=== PATIENT | male | born 1960 | race Caucasian/White ===

== ENCOUNTER 2017-03-05 18:01 | Emergency (ER) | payer OTHER, MEDICAID ==
[~2017-03-05] VITALS: Ht 180.3 cm; Wt 130.0 kg
[~2017-03-05 18:01] MED LIST: ARIM1TAB PO; BETH10 PO; CEFU1TAB43 PO; CITA-48 PO; CLIN1CAP6 PO; CYCL1PAK PO; GABA100C4 PO; GLUCOMETER XX; GLUCOMTESTSTRIPS; HYDR-3535 PO; LISI-360 PO; MONT10TA2 PO; OMEP20TA39 PO; PRAV40TA2 PO; SOMA350T PO; XANA2TAB2 PO; Z.0.LANCETS XX
[2017-03-05 18:04] VITALS: BP 142/96; PULSE 99; RESP 14; TEMP 98.6; O2SAT 95
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
[2017-03-05] MEDS ORDERED: SODIUM CHLOR 0.9% 1000 ML INJ 1,000 ML IV SCH (19:50)
[2017-03-05] MEDS ORDERED: SODIUM CHLORIDE 0.9% FLUSH 10 ML FLUSH IV FLUSH PRN (20:00)
[2017-03-05] MEDS ORDERED: ONDANSETRON HCL 4 MG/2 ML VIAL IVP ONE (20:00)
[2017-03-05] MEDS ORDERED: MORPHINE SULFATE 2 MG/ML INJ IV PUSH ONE (20:00)
[2017-03-05 20:21] LABS: BASOPHIL # 0.1 TH/MM3 (0-0.2); BASOPHIL % 0.7 % (0.0-2.0); EOSINOPHIL # 0.6 TH/MM3 (0-0.4); HEMATOCRIT 50.2 % (39.0-51.0); HEMOGLOBIN 17.3 GM/DL (13.0-17.0); LYMPH % 20.6 % (9.0-44.0); LYMPHOCYTE # 2.5 TH/MM3 (1.0-4.8); MEAN CELL VOLUME 91.6 FL (80.0-100.0); MEAN CORPUSCULAR HEMOGLOBIN 31.5 PG (27.0-34.0); MEAN CORPUSCULAR HGB CONC 34.4 % (32.0-36.0); MEAN PLATELET VOLUME 8.2 FL (7.0-11.0); MONO % 7.2 % (0.0-8.0); MONOCYTE # 0.9 TH/MM3 (0-0.9); NEUT % 66.5 % (16.0-70.0); PLATELET COUNT 179 TH/MM3 (150-450); RED BLOOD COUNT 5.48 MIL/MM3 (4.50-5.90); RED CELL DISTRIBUTION WIDTH 13.4 % (11.6-17.2); WHITE BLOOD COUNT 12.1 TH/MM3 (4.0-11.0)
[2017-03-05] MEDS ORDERED: NAPR500T2 PO (20:25)
[2017-03-05] MEDS ORDERED: TRAZ1TAB14 PO (20:25)
[2017-03-05] MEDS ORDERED: HYDR-3583 PO (20:25)
[2017-03-05] MEDS ORDERED: LOSA25TA PO (20:25)
[2017-03-05] MEDS ORDERED: BUPR300T PO (20:25)
[2017-03-05] MEDS ORDERED: OMEP20TA93 PO (20:25)
[2017-03-05] MEDS ORDERED: PRAV40TA2 PO (20:25)
[2017-03-05] MEDS ORDERED: MONT10TA4 PO (20:25)
[2017-03-05] MEDS ORDERED: CYCL10TA PO (20:25)
[2017-03-05] MEDS ORDERED: ALPR1TAB3 PO (20:25)
[2017-03-05] MEDS ORDERED: NYST500000 PO (20:25)
[2017-03-05] MEDS ORDERED: ROPI0.5T PO (20:25)
[2017-03-05] MEDS ORDERED: CITA40TA4 PO (20:25)
[2017-03-05] MEDS ORDERED: DULA10IN SQ (20:25)
[2017-03-05] MEDS ORDERED: CANA1TAB4 PO (20:25)
[2017-03-05] MEDS ORDERED: BUSP10TA PO (20:25)
[2017-03-05] MEDS ORDERED: GABA100C4 PO (20:25)
--- NOTE | 2017-03-05 20:31 | RADRPT ---
EXAM DATE/TIME: 03/05/2017 20:03 [facility] COMPARISON: No previous studies available for comparison. INDICATIONS : HALFWAY,Trauma. MEDICAL HISTORY : None. SURGICAL HISTORY : None. ENCOUNTER: Initial ACUITY: 1 day PAIN SCORE: 5/10 LOCATION: Left shoulder FINDINGS: There is no fracture or subluxation of the left shoulder. There is mild acromioclavicular and severe glenohumeral joint osteoarthritis. Radiographic appearance of the soft tissues within normal limits. CONCLUSION: Degenerative changes as above. Intact left shoulder. Cornell Thompson MD on March 05, 2017 at 20:28 Board Certified Radiologist. This report was verified electronically.
--- NOTE | 2017-03-05 20:32 | RADRPT ---
EXAM DATE/TIME: 03/05/2017 20:07 [facility] COMPARISON: No previous studies available for comparison. INDICATIONS : CORRECTION,Trauma. MEDICAL HISTORY : None. SURGICAL HISTORY : None. ENCOUNTER: Initial ACUITY: 1 day PAIN SCORE: 5/10 LOCATION: Left elbow FINDINGS: Two view examination of the left elbow demonstrates no soft tissue swelling, joint effusion, fracture or dislocation. Bony mineralization is normal. CONCLUSION: Intact left elbow. Cornell Thompson MD on March 05, 2017 at 20:29 Board Certified Radiologist. This report was verified electronically.
--- NOTE | 2017-03-05 20:34 | RADRPT ---
EXAM DATE/TIME: 03/05/2017 20:11 [facility] COMPARISON: No previous studies available for comparison. INDICATIONS : CUSTODIAL,Trauma. MEDICAL HISTORY : None. SURGICAL HISTORY : None. ENCOUNTER: Initial ACUITY: 1 day PAIN SCORE: 5/10 LOCATION: Left knee FINDINGS: Four view examination of the left knee demonstrates no evidence of fracture or dislocation. Bony min eralization is normal. The articular surfaces are intact. The suprapatellar soft tissues have a nor mal configuration. Mild tricompartment joint space narrowing. There is osteoarthritis also seen of the proximal tib-fib joint. CONCLUSION: Intact left knee. Mild degenerative changes. Cornell Thompson MD on March 05, 2017 at 20:31 Board Certified Radiologist. This report was verified electronically.
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
[2017-03-05 20:49] LABS: ALKALINE PHOSPHATASE 63 U/L (45-117); ALT (GPT) 90 U/L (12-78); TOTAL BILIRUBIN ADULT 0.5 MG/DL (0.2-1.0)
[2017-03-05] MEDS ORDERED: KETOROLAC TROMETHAMINE 30 MG/ML (IVP) VIAL IV PUSH ONE (21:00)
[2017-03-05 21:11] LABS: ALBUMIN 4.3 GM/DL (3.4-5.0); AST (GOT) 53 U/L (15-37); BICARBONATE 30.9 MEQ/L (21.0-32.0); BLOOD UREA NITROGEN 14 MG/DL (7-18); CHLORIDE 99 MEQ/L (98-107); CREATININE 1.11 MG/DL (0.60-1.30); GLOMERULAR FILTRATION RATE 68 ML/MIN (>89); GLUCOSE,RANDOM 120 MG/DL (74-106); SODIUM (NA) 135 MEQ/L (136-145)
[2017-03-05 21:48] LABS: BILIRUBIN, URINE NEG (NEG); BLOOD, URINE NEG (NEG); GLUCOSE,URINE 1000 mg/dL (NEG); KETONE, URINE NEG (NEG); MUCUS URINE FEW /lpf (OCC); NITRITE,URINE NEG (NEG); PH, URINE 5.5 (5.0-8.5); URINE COLOR YELLOW (YELLW/STRAW); URINE LEUKOCYTE ESTERASE NEG (NEG)
[2017-03-05 21:55] VITALS: BP 164/92; PULSE 80; RESP 18; O2SAT 98
[2017-03-05] MEDS ORDERED: IBUP1TAB7 PO (22:05)
== END 2017-03-05 22:45 | disposition home or self-care (01) ==
LOC: NEPC 18:01
DX: S80.812A Abrasion, left lower leg, initial encounter (principal); S70.312A Abrasion, left thigh, initial encounter; S50.311A Abrasion of right elbow, initial encounter; S60.212A Contusion of left wrist, initial encounter; V29.40XA Motorcycle driver injured in collision with unspecified motor vehicles in traffic accident, initial encounter
CPT/HCPCS: 71045; 73030; 73070; 73110; 73564; 73590; 80053; 81001; 85025; 96374; 96375; 99284; J1885; J2270; J2405; J7030

== ENCOUNTER 2017-10-29 10:53 | Observation (INO) ==
[2017-10-29] MEDS ORDERED: Aspirin 325 MG Tablet PO ONE (12:19)
[2017-10-29 12:34] LABS: Baso % (Auto) 0.5 % (0.0-2.0); Eos # (Auto) 0.4 th/mm3 (0.0-0.4); Eos % (Auto) 5.1 % (0.0-4.0); Hematocrit 48.3 % (39.0-51.0); Hemoglobin 16.5 gm/dL (13.0-17.0); Lymph # (Auto) 1.7 th/mm3 (1.0-4.8); Lymph % (Auto) 21.3 % (9.0-44.0); Mean Corpuscular HGB Conc 34.2 % (32.0-36.0); Mean Corpuscular Hemoglobin 31.9 pg (27.0-34.0); Mean Corpuscular Volume 93.4 fL (80.0-100.0); Mean Platelet Volume 8.8 fL (7.0-11.0); Mono # (Auto) 0.3 th/mm3 (0.0-0.9); Mono % (Auto) 4.1 % (0.0-8.0); Neut # (Auto) 5.6 th/mm3 (1.8-7.7); Platelet Count 170 th/mm3 (150-450); Red Blood Count 5.18 mil/mm3 (4.50-5.90); Red Cell Distribution Width 13.4 % (11.6-17.2); White Blood Count 8.1 th/mm3 (4.0-11.0)
--- NOTE | 2017-10-29 12:40 | ED ---
HPI General Chief Complaint: Chest Pain Stated Complaint: Chest pain/Sob Time Seen by Provider: 10/29/17 12:19 Source: patient and family Mode of arrival: ambulatory Limitations: no limitations History of Present Illness HPI narrative: 57-year-old male with PMH of anxiety, obestiy, angina, HTN, DM, HLD, GERD, current smoker presents to the ED for evaluation of 4 day history of left-sided chest tightness. Onset at rest. Described as a tightness. Rated 9/ 10 on presentation. Accompanied by shortness of breath, diaphoresis and palpitations. He denies radiation of the pain. States he was feeling well prior to onset of this pain. He denies recent history of fever, chills, cough, abdominal pain, nausea, vomiting. He treated at home with sublingual nitroglycerin yesterday. He states that this "eased it off." at bedside states that he was complaining of palpitations so she gave him "some of her anxiety medications." He states this also help to improve but not resolve his symptoms. He states that he had a recent cardiac cath and stress test but is unable to recall the name of the provider or where it was performed. Related Data Home Medications Medication Instructions Recorded Confirmed aspirin [Aspir-81] 81 mg PO DAILY 10/29/17 10/29/17 bupropion HCl 300 mg PO QAM 10/29/17 10/29/17 citalopram 40 mg PO DAILY 10/29/17 10/29/17 cyclobenzaprine 10 mg PO TID PRN 10/29/17 10/29/17 gabapentin 300 mg PO HS 10/29/17 10/29/17 hydrocodone-acetaminophen 1 tab PO Q6H PRN 10/29/17 10/29/17 losartan 25 mg PO DAILY 10/29/17 10/29/17 montelukast 10 mg PO QPM 10/29/17 10/29/17 nitroglycerin 0.4 mg SUBLINGUAL Q5-15M PRN 10/29/17 10/29/17 omeprazole 20 mg PO DAILY 10/29/17 10/29/17 pravastatin 40 mg PO DAILY 10/29/17 10/29/17 Allergies Allergy/AdvReac Type Severity Reaction Status Date / Time No Known Allergies Allergy Unverified 10/29/17 11:10 Review of Systems ROS: all other systems reviewed are negative [facility] Medical History Medical History Depression (Acute) Diabetes (Acute) GERD (gastroesophageal reflux disease) (Acute) History of left heart catheterization (Acute) Hypercholesteremia (Acute) Hypertension (Acute) Neuropathic pain (Acute) Social History Social History Substance History: No History of Abuse Second Hand Smoke Exposure: No Smoking Status: Light tobacco smoker Tobacco Type: Cigarettes How Often Do You Have a Drink Containing Alcohol: 2 to 4 times a month Recent Travel in [place] within the Last 8 Weeks: No Recent Out of Country Travel within the Last 8 Weeks: No Immunization History Tetanus Immunization: Unsure Hx Influenza Vaccine This Season: Yes Exam Narrative Exam Narrative: GENERAL: Obese male in no acute distress. SKIN: Focused skin assessment warm/dry. HEAD: Atraumatic. Normocephalic. EYES: Pupils equal and round. No scleral icterus. No injection or drainage. ENT: No nasal bleeding or discharge. Mucous membranes pink and moist. NECK: Trachea midline. No JVD. CARDIOVASCULAR: Regular rate and rhythm. No murmur appreciated. RESPIRATORY: No accessory muscle use. Clear to auscultation. Breath sounds equal bilaterally. CHEST: Nontender throughout without deformity or crepitus. No retractions. GASTROINTESTINAL: Abdomen soft, non-tender, nondistended. Hepatic and splenic margins not palpable. MUSCULOSKELETAL: No obvious deformities. No clubbing. No cyanosis. No edema. NEUROLOGICAL: Awake and alert. No obvious cranial nerve deficits. Motor grossly within normal limits. Normal speech. PSYCHIATRIC: Appropriate mood and affect; insight and judgment normal. Course Initial Documented Vital Signs Temperature 98.0 F 10/29/17 10:59 Pulse Rate 83 10/29/17 10:59 Respiratory Rate 17 10/29/17 10:59 Blood Pressure 130/74 10/29/17 10:59 Pulse Oximetry 98 10/29/17 10:59 Last Documented Vital Signs Temperature 98.0 F 10/29/17 10:59 Pulse Rate 81 10/29/17 11:12 Respiratory Rate 23 10/29/17 11:12 Blood Pressure 132/81 10/29/17 11:12 Pulse Oximetry 95 10/29/17 11:12 Medical Decision Making KYRA Attestation KYRA supervised visit: Yes Attestation: I, Dr. Osborn, have reviewed the advance practice practitioner's documentation and am in agreement, met with the patient face to face, made the diagnosis, and the medical decision making was done by me. *My assessment and Findings: Patient is a 57-year-old male who presents the emergency room complaints of chest pain which is an ongoing for the past 4 days. Patient describes chest pain as a pressure to his chest with associated shortness of breath with diaphoresis. Reports history of coronary artery disease with history of cardiac cath and one stent in the past. 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 EKG was reviewed, patient with no acute changes. First set of cardiac enzyme is negative, patient is chest pain-free after 2 sublingual nitroglycerin. Patient will be admitted to the chest pain at this time. MDM Narrative Medical decision making narrative: 57-year-old male with PMH of anxiety, obesity , angina, HTN, DM, HLD, GERD, current smoker presents to the ED for evaluation of 4 day history of left-sided chest tightness. Onset at rest. Described as a tightness. Rated 9/10 on presentation. Accompanied by shortness of breath, diaphoresis and palpitations. He denies radiation of the pain. Vitals reviewed. Physical exam reveals no appreciable M/R/G. Chest CTA B. Abdomen soft and nontender. Patient was administered 325 mg aspirin. He was administered 2 doses of sublingual nitroglycerin. On recheck he reports pain is improved to 2/10. I reviewed the patient's record. He had a treadmill stress test of 01/26/15. No evidence of ischemia per record review. 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 EKG rate 77, sinus rhythm. SD interval 174, QRS 93, QTC 394 ms. Normal axis. No acute ST changes. Reviewed by Dr. Osborn. CXR: No acute findings. Troponin negative 1. No concerning abnormalities of the CBC or CMP. Lipase within normal limits. I discussed the results the workup with the patient and his family. Given the significant risk factors and admission to the chest pain center is warranted. Patient and his are agreeable. Please see chest pain center notes for disposition. Medical Screen Exam Complete: Yes Emergency Medical Condition: Yes Differential Diagnosis Differential Diagnosis: GERD versus angina versus ACS versus other Lab Data Result diagrams: 10/29/17 12:23 10/29/17 12:23 Lab Results 10/29/17 10/29/17 10/29/17 Range/Units 12:23 12: 12:23 WBC 8.1 (4.0-11.0) th/mm3 RBC 5.18 (4.50-5.90) mil/mm3 Hgb 16.5 (13.0-17.0) gm/dL Hct 48.3 (39.0-51.0) % MCV 93.4 (80.0-100.0) fL MCH 31.9 (27.0-34.0) pg MCHC 34.2 (32.0-36.0) % RDW 13.4 (11.6-17.2) % Plt Count 170 (150-450) th/mm3 MPV 8.8 (7.0-11.0) fL Neut % (Auto) 69.0 (16.0-70.0) % Lymph % (Auto) 21.3 (9.0-44.0) % [place] % (Auto) 4.1 (0.0-8.0) % Eos % (Auto) 5.1 H (0.0-4.0) % Baso % (Auto) 0.5 (0.0-2.0) % Neut # (Auto) 5.6 (1.8-7.7) th/mm3 Lymph # (Auto) 1.7 (1.0-4.8) th/mm3 [place] # (Auto) 0.3 (0.0-0.9) th/mm3 Eos # (Auto) 0.4 (0.0-0.4) th/mm3 Baso # (Auto) 0.0 (0.0-0.2) th/mm3 WBC Differential . Differential Comment Auto diff final Sodium 141 (136-145) meq/L Potassium 3.8 (3.5-5.1) meq/L Chloride 103 (98-107) meq/L Carbon Dioxide 23.0 (21.0-32.0) meq/L Anion Gap 15 (5-15) meq/L BUN 15 (7-18) mg/dL Creatinine 1.26 (0.60-1.30) mg/dL Estimated GFR 59 L (>89) mL/min Random Glucose 160 H (74-106) mg/dL Calcium 8.9 (8.5-10.1) mg/dL Magnesium 2.0 (1.5-2.5) mg/dL Total Bilirubin 0.4 (0.2-1.0) mg/dL AST 34 (15-37) U/L ALT 67 (12-78) U/L Alkaline Phosphatase 66 (45-117) U/L Troponin I Less than 0.02 L (0.02-0.05) ng/mL Total Protein 7.8 (6.4-8.2) g/dL Albumin 4.0 (3.4-5.0) g/dL Lipase 143 (73-393) U/L Imaging Data Radiologist's impression: Chest X-Ray 10/29/17 12:19 CONCLUSION: Negative examination. Discharge Plan Discharge Disposition Patient Disposition: 30 Still Patient Physicians Team ED Provider: Jessica Osborn ED Midlevel Provider: Cora Dee Rxs /Orders / Referrals /Forms Prescriptions: No Action cyclobenzaprine 10 mg Tablet 10 mg PO TID PRN (Reason: Pain) RF: 0 citalopram 40 mg Tablet 40 mg PO DAILY RF: 0 pravastatin 40 mg Tablet 40 mg PO DAILY RF: 0 losartan 25 mg Tablet 25 mg PO DAILY RF: 0 gabapentin 300 mg Capsule 300 mg PO HS RF: 0 omeprazole 20 mg Capsule,Delayed Release(Dr/Ec) 20 mg PO DAILY RF: 0 montelukast 10 mg Tablet 10 mg PO QPM RF: 0 bupropion HCl 300 mg Tablet Extended Release 24 Hr 300 mg PO QAM RF: 0 hydrocodone-acetaminophen 10-325 mg Tablet 1 tab PO Q6H PRN (Reason: Pain) RF: 0 aspirin [Aspir-81] 81 mg Tablet,Delayed Release (Dr/Ec) 81 mg PO DAILY RF: 0 nitroglycerin 0.4 mg Tablet, Sublingual 0.4 mg SUBLINGUAL Q5-15M PRN (Reason: Pain) RF: 0 Discharge Instructions Patient Printed Instructions: Chest Pain (ED) Status ED Status: With Doctor
--- NOTE | 2017-10-29 12:49 | XR ---
EXAM DATE: 10/29/2017 12:44 PM EDT AGE/SEX: 57 years / Male INDICATIONS: Chest pain. CLINICAL DATA: This is the patient's initial encounter. Patient reports that signs and symptoms have been present for 4 - 6 days and indicates a pain score of 8/10. MEDICAL/SURGICAL HISTORY: . Hypertension, Diabetes, high cholesterol . Cardiac stent. COMPARISON: [facility] [place], 03/05/2017. . FINDINGS: A single AP view of the chest demonstrates the lungs to be symmetrically aerated without evidence of mass, infiltrate or effusion. The cardiomediastinal contours are unremarkable. Osseous structures a re intact. CONCLUSION: Negative examination. Electronically signed by: Ferny Carpenter MD 10/29/2017 12:47 PM EDT
[2017-10-29 12:56] LABS: Alanine Aminotransferase 67 U/L (12-78); Anion Gap 15 meq/L (5-15); Aspartate Aminotransferase 34 U/L (15-37); Blood Urea Nitrogen 15 mg/dL (7-18); Calcium 8.9 mg/dL (8.5-10.1); Chloride 103 meq/L (98-107); Glomerular Filtration Rate 59 mL/min (>89); Glucose,Random 160 mg/dL (74-106); Potassium 3.8 meq/L (3.5-5.1); Sodium 141 meq/L (136-145)
[2017-10-29 13:00] LABS: Alkaline Phosphatase 66 U/L (45-117); Total Protein 7.8 g/dL (6.4-8.2)
[2017-10-29] MEDS ORDERED: Acetaminophen 500 MG Tablet PO PRN (14:27)
[2017-10-29] MEDS ORDERED: Ketorolac Inj 30 MG/ML (IVP) Vial IV.PUSH ONE (15:12)
--- NOTE | 2017-10-29 15:58 | P.HPCA ---
History of Present Illness [facility] Care Physician[facility] Chief Complaint: Chest pain History of Present Illness: 57-year-old male with history of coronary artery disease, diabetes, hypertension , and hyperlipidemia presents emergency room for further evaluation of chest pain. Onset . Location left anterior chest. Characterizes pressure. No radiation. Duration constant. Waxing and waning in intensity. No associated symptoms of nausea or vomiting. Intermittent diaphoresis since , denying any change in chest pressure during times of diaphoresis. Exertional dyspnea last few days as well, causing him to "take it easy." Hurts to take a deep breath. No particular position or movement makes pain better or worse. No precipitating factors. No relieving factors, tried taking nitro sl with some decrease in symptoms. No recent illness, fever, recent travel, sick contacts, or injury. Intermittent chills. No history of DVT or PE. Endorses similar pain in 2011 prior to cardiac stent placed. Denies GA however required 5 days hospital admission. Follows with [facility], unable to recall name of fur tanner. No recent cardiac testing he can recall. Past cardiac testing Oren protocol ETT-No evidence of ischemia. Walked 4:44 minutes. February 2011 Cardiac catheterization-reports x1 cardiac stent placed, no stent cards available for review. Social history Known CAD, hypertension, hyperlipidemia, and diabetes. Denies being a smoker, however endorses "puffing the end of my 's cigarettes nightly." Denies any alcohol or recreational drug use. Disabled. Endorses sedentary lifestyle. Family history Noncontributory for early onset cardiovascular disease. Mother has cardiac stents. - Diagnosis (1) Chest pain of uncertain etiology (2) History of type 2 diabetes mellitus (3) History of anxiety (4) History of hypertension (5) History of coronary artery disease Review of Systems All other systems reviewed negative except as stated in HPI [facility] - History History Provided By: Patient - Medical History Medical History: Medical History (Last Updated 10/29/17 @ 15:35 by VERNA Dial) Chronic pain Coronary artery disease Depression Diabetes GERD (gastroesophageal reflux disease) Hypercholesteremia Hypertension Neuropathic pain - Surgical History Surgical History: Surgical History (Last Updated 10/29/17 @ 15:35 by VERNA Dial) H/O heart artery stent - Tobacco History Second Hand Smoke Exposure: Yes Tobacco Use In Past 30 Days: Yes ("puffs the end of his wifes cigarette nightly ") Smoking Status: Light tobacco smoker Tobacco Type: Cigarettes - Alcohol History How Often Do You Have a Drink Containing Alcohol: 2 to 4 times a month - Substance Use History Substance History: No History of Abuse - Travel History Recent Travel in the [place] Within the Last 8 Weeks: No Recent Travel Out of the Country Within the Last 8 Weeks: No - Immunization History Tetanus Immunization: Unsure Hx Influenza Vaccine This Season: Yes Medications and Allergies Active Medications: Active Medications Acetaminophen (Tylenol) 500 mg PO Q4H PRN PRN Reason: HEADACHE Aspirin (Aspirin) 325 mg PO DAILY ADAM Nitroglycerin (Nitrostat Sl) 0.4 mg SL Q5M PRN PRN Reason: CHEST PAIN Ondansetron HCl (Zofran Inj) 4 mg IV.PUSH Q6H PRN PRN Reason: NAUSEA Sodium Chloride (Ns Flush) 2 ml IV.FLUSH BID ADAM Sodium Chloride (Ns Flush) 2 ml IV.FLUSH PRN PRN PRN Reason: FLUSH AFTER USING IV ACCESS Allergies Allergy/AdvReac Type Severity Reaction Status Date / Time No Known Allergies Allergy Unverified 10/29/17 11:10 Home Medications Medication Instructions Recorded Confirmed Type aspirin [Aspir-81] 81 mg PO DAILY 10/29/17 10/29/17 History bupropion HCl 300 mg PO QAM 10/29/17 10/29/17 History citalopram 40 mg PO DAILY 10/29/17 10/29/17 History cyclobenzaprine 10 mg PO TID PRN 10/29/17 10/29/17 History gabapentin 300 mg PO HS 10/29/17 10/29/17 History hydrocodone-acetaminophen 1 tab PO Q6H PRN 10/29/17 10/29/17 History losartan 25 mg PO DAILY 10/29/17 10/29/17 History montelukast 10 mg PO QPM 10/29/17 10/29/17 History nitroglycerin 0.4 mg SUBLINGUAL Q5-15M PRN 10/29/17 10/29/17 History omeprazole 20 mg PO DAILY 10/29/17 10/29/17 History pravastatin 40 mg PO DAILY 10/29/17 10/29/17 History Exam Vital signs: Vital Signs 10/29/17 10:59 10/29/17 11:12 Temperature 98.0 F Pulse Rate 83 81 Respiratory Rate 17 23 Blood Pressure 130/74 132/81 Pulse Oximetry 98 95 Intake & Output 10/28/17 10/29/17 10/29/17 18:59 06:59 18:59 Weight 127.913 kg Narrative: GENERAL: Alert WN, WD, NAD, pleasant, morbidly obese male HEAD: NC, AT EYES: Sclera clear, conjunctiva without injection ENT: Mucous membranes pink and moist NECK: Supple, no masses, trachea midline CV: Heart tones distant, RRR, without murmur, rub, gallop, no JVD, S1-S2. Chest wall pain reproduced with palpation. RESP: Clear lungs throughout bilateral, no crackles, wheeze, rhonchi, symmetrical chest rise, nonlabored, able to speak in full sentences ABD: Soft, NT, ND, no masses, positive bowel tones EXT: Pulses +2x4, no dependent edema MS: Normal tone x4 extremities, nontender, no obvious deformities, full range of motion NEURO: CN II through CN XII grossly intact, motor strength 5/5 PSYCH: A+O x3, pleasant affect, appropriate speech, mood, insight and judgment SKIN: Normal turgor, normal texture, no lesions, no rashes, brisk cap refill, even hair distribution, heavily tattooed Results 10/29/17 12:23 10/29/17 12:23 Cardiac Enzymes 10/29/17 Range/Units 12:23 AST 34 (15-37) U/L Troponin I Less than 0.02 L (0.02-0.05) ng/mL CBC 10/29/17 Range/Units 12:23 WBC 8.1 (4.0-11.0) th/mm3 RBC 5.18 (4.50-5.90) mil/mm3 Hgb 16.5 (13.0-17.0) gm/dL Hct 48.3 (39.0-51.0) % Plt Count 170 (150-450) th/mm3 Neut # (Auto) 5.6 (1.8-7.7) th/mm3 Lymph # (Auto) 1.7 (1.0-4.8) th/mm3 [place] # (Auto) 0.3 (0.0-0.9) th/mm3 Eos # (Auto) 0.4 (0.0-0.4) th/mm3 Baso # (Auto) 0.0 (0.0-0.2) th/mm3 Comprehensive Metabolic Panel 10/29/17 Range/Units 12:23 Sodium 141 (136-145) meq/L Potassium 3.8 (3.5-5.1) meq/L Chloride 103 (98-107) meq/L Carbon Dioxide 23.0 (21.0-32.0) meq/L BUN 15 (7-18) mg/dL Creatinine 1.26 (0.60-1.30) mg/dL Calcium 8.9 (8.5-10.1) mg/dL AST 34 (15-37) U/L ALT 67 (12-78) U/L Alkaline Phosphatase 66 (45-117) U/L Total Protein 7.8 (6.4-8.2) g/dL Albumin 4.0 (3.4-5.0) g/dL Intake and Output 10/29/17 10/29/17 10/29/17 06:59 14:59 22:59 Other: Weight 127.913 kg Patient Weight 10/30/17 06:59 Weight 127.913 kg - Imaging and Cardiology Imaging: Impressions Chest X-Ray 10/29/17 12:19 CONCLUSION: Negative examination. EKG interpretations - EKG EKG results cardiology: sinus rhythm, normal axis, normal QRS, normal ST/T Caprini VTE Risk Assessment Caprini VTE Risk Assessment: No/Low Risk (score <= 1) Caprini Risk Assessment Model: Point Value = 1 Point Value = 2 Point Value = 3 Point Value = 5 Age 41-60 Minor surgery BMI > 25 kg/m2 Swollen legs Varicose veins or History of unexplained or recurrent spontaneous Oral contraceptives or hormone replacement Sepsis (< 1 month) Serious lung disease, including pneumonia (< 1 month) Abnormal pulmonary function Acute myocardial infarction Congestive heart failure (< 1 month) History of inflammatory bowel disease Medical patient at bed rest Age 61-74 Arthroscopic surgery Major open surgery (> 45 min) Laparoscopic surgery (> 45 min) Malignancy Confined to bed (> 72 hours) Immobilizing plaster cast Central venous access Age >= 75 History of VTE Family history of VTE Factor V Leiden Prothrombin [id number] Lupus anticoagulant Anticardiolipin antibodies Elevated serum homocysteine Heparin-induced thrombocytopenia Other congenital or acquired thrombophilia Stroke (< 1 month) Elective arthroplasty Hip, pelvis, or leg fracture Acute spinal cord injury (< 1 month) Prophylaxis Regimen: Total Risk Factor Score Risk Level Prophylaxis Regimen 0-1 Low Early ambulation 2 Moderate Order ONE of the following: *Sequential Compression Device (SCD) *Heparin 5000 units SQ BID 3-4 Higher Order ONE of the following medications: *Heparin 5000 units SQ TID *Enoxaparin/Lovenox 40 mg SQ daily (WT < 150 kg, CrCl > 30 mL/min) *Enoxaparin/Lovenox 30 mg SQ daily (WT < 150 kg, CrCl > 10-29 mL/min) *Enoxaparin/Lovenox 30 mg SQ BID (WT < 150 kg, CrCl > 30 mL/min) AND/OR *Sequential Compression Device (SCD) 5 or more Highest Order ONE of the following medications: *Heparin 5000 units SQ TID (Preferred with Epidurals) *Enoxaparin/Lovenox 40 mg SQ daily (WT < 150 kg, CrCl > 30 mL/min) *Enoxaparin/Lovenox 30 mg SQ daily (WT < 150 kg, CrCl > 10-29 mL/min) *Enoxaparin/Lovenox 30 mg SQ BID (WT < 150 kg, CrCl > 30 mL/min) AND *Sequential Compression Device (SCD) Assessment and Plan - Assessment (1) Chest pain of uncertain etiology Code(s): R07.89 - Other chest pain Status: Acute Plan: Admitted chest pain center. Rule out ACS with 3 sets of EKGs and cardiac enzymes. Monitor on telemetry overnight. Will be seen and evaluated by Dr. Roque Rouse in a.m. Discomfort suggestive of musculoskeletal pain. Toradol 30 mg IV 1 dose now. Due to multiple risk factors not unreasonable to repeat cardiac stress testing in a.m. This will be determined after evaluation by fur tanner. Discussed plan of care with patient and he is agreeable to plan of care. (2) History of type 2 diabetes mellitus Code(s): Z86.39 - Personal history of other endocrine, nutritional and metabolic disease Status: Chronic Plan: Hold oral anti-hyperglycemics. SSI low dose coverage. (3) History of anxiety Code(s): Z86.59 - Personal history of other mental and behavioral disorders Status: Chronic Plan: Continue citalopram and bupropion. (4) History of hypertension Code(s): Z86.79 - Personal history of other diseases of the circulatory system Status: Chronic Plan: Continue losartan. (5) History of coronary artery disease Code(s): Z86.79 - Personal history of other diseases of the circulatory system Status: Chronic Plan: Continue aspirin and pravastatin.
[2017-10-29 23:04] LABS: Creatine Kinase 139 U/L (39-308)
[2017-10-30 02:39] LABS: Creatine Kinase 143 U/L (39-308)
[2017-10-30 07:45] VITALS: BP 144/89; RESP 18; TEMP 98.4
[2017-10-30 08:10] VITALS: O2SAT 98
[2017-10-30] MEDS ORDERED: Aspirin 325 MG Tablet PO SCH (09:00)
[2017-10-30] MEDS ORDERED: buPROPion 150 MG XL 24 HR Tablet PO SCH (10:15)
[2017-10-30] MEDS ORDERED: Pantoprazole Sodium 20 MG DR Tablet PO SCH (10:15)
--- NOTE | 2017-10-30 10:28 | ECG ---
Date Performed: 10/30/2017 Time Performed: 06:06:57 PTAGE: 57 years EKG: Sinus rhythm WITH SINUS ARRHYTHMIA NONSPECIFIC T-WAVE ABNORMALITY BORDERLINE ECG PREVIOUS TRACING : 10/29/2017 18.46 Since previous tracing, no significant change noted DOCTOR: Roque Rouse Interpretating Date/Time 10/30/2017 10:27:13
--- NOTE | 2017-10-30 10:29 | ECG ---
Date Performed: 10/29/2017 Time Performed: 18:46:41 PTAGE: 57 years EKG: Sinus rhythm WITH SINUS ARRHYTHMIA NONSPECIFIC T-WAVE ABNORMALITY BORDERLINE ECG PREVIOUS TRACING : 10/29/2017 11.11 Since previous tracing, no significant change noted DOCTOR: Roque Rouse Interpretating Date/Time 10/30/2017 10:28:44
--- NOTE | 2017-10-30 10:31 | ECG ---
Date Performed: 10/29/2017 Time Performed: 11:11:15 PTAGE: 57 years EKG: Sinus rhythm NONSPECIFIC T-WAVE ABNORMALITY BORDERLINE ECG PREVIOUS TRACING : 01/06/2015 14.37 Since previous tracing, no significant change noted DOCTOR: Roque Rouse Interpretating Date/Time 10/30/2017 10:30:20
--- NOTE | 2017-10-30 10:48 | P.PNCA ---
Subjective Interval history: Complains of constant chest pressure for days. Found nothing to worsen or improve it. At times short of breath. No nausea or diaphoresis. He initially states that he has heart disease had a stent in 2012. However his has a heart catheterization records and heart catheterization from 2012 report reveals normal coronaries. This was reviewed with Dr. Roque Rouse. Medications and Allergies Active Medications: Active Medications Acetaminophen (Tylenol) 500 mg PO Q4H PRN PRN Reason: HEADACHE Last Admin: 10/29/17 21:41 Dose: 500 mg Hydrocodone Bitart/Acetaminophen ([place] 10/325) 1 tab PO Q6H PRN PRN Reason: PAIN SCALE 6 TO 10 Aspirin (Aspirin) 325 mg PO DAILY ADAM Bupropion HCl (Wellbutrin Xl) 300 mg PO DAILY ADAM Citalopram Hydrobromide (Celexa) 40 mg PO DAILY ADAM Cyclobenzaprine HCl (Flexeril) 10 mg PO TID PRN PRN Reason: MUSCLE Pain/SPASM Gabapentin (Neurontin) 300 mg PO HS [facility] Losartan Potassium (Cozaar) 25 mg PO DAILY [facility] Nitroglycerin (Nitrostat Sl) 0.4 mg SL Q5M PRN PRN Reason: CHEST PAIN Ondansetron HCl (Zofran Inj) 4 mg IV.PUSH Q6H PRN PRN Reason: NAUSEA Pantoprazole Sodium (Protonix) 20 mg PO BID ADAM Pravastatin Sodium (Pravachol) 40 mg PO DAILY [facility] Sodium Chloride (Ns Flush) 2 ml IV.FLUSH BID ADAM Last Admin: 10/29/17 23:08 Dose: 2 ml Sodium Chloride (Ns Flush) 2 ml IV.FLUSH PRN PRN PRN Reason: FLUSH AFTER USING IV ACCESS Allergies Allergy/AdvReac Type Severity Reaction Status Date / Time No Known Allergies Allergy Unverified 10/29/17 11:10 Home Medications Medication Instructions Recorded Confirmed Type aspirin [Aspir-81] 81 mg PO DAILY 10/29/17 10/29/17 History bupropion HCl 300 mg PO QAM 10/29/17 10/29/17 History citalopram 40 mg PO DAILY 10/29/17 10/29/17 History cyclobenzaprine 10 mg PO TID PRN 10/29/17 10/29/17 History gabapentin 300 mg PO HS 10/29/17 10/29/17 History hydrocodone-acetaminophen 1 tab PO Q6H PRN 10/29/17 10/29/17 History losartan 25 mg PO DAILY 10/29/17 10/29/17 History montelukast 10 mg PO QPM 10/29/17 10/29/17 History nitroglycerin 0.4 mg SUBLINGUAL Q5-15M PRN 10/29/17 10/29/17 History omeprazole 20 mg PO DAILY 10/29/17 10/29/17 History pravastatin 40 mg PO DAILY 10/29/17 10/29/17 History canagliflozin-metformin [Invokamet] 1 tab PO BID 10/30/17 10/30/17 History citalopram 40 mg PO DAILY 10/30/17 10/30/17 History hydrocodone-acetaminophen 10 - 325 mg PO QID 10/30/17 10/30/17 History losartan 25 mg PO DAILY 10/30/17 10/30/17 History naproxen 500 mg PO BID 10/30/17 10/30/17 History omeprazole 20 mg PO BID 10/30/17 10/30/17 History Physical Exam Vital signs: Vital Signs 10/29/17 10:59 10/29/17 11:12 10/29/17 17:15 Temperature 98.0 F Pulse Rate 83 81 67 Respiratory Rate 17 23 22 Blood Pressure 130/74 132/81 151/79 H Pulse Oximetry 98 95 98 10/29/17 20:00 10/29/17 23:49 10/30/17 00:00 Temperature 98.0 F 98.7 F Pulse Rate 70 68 74 Respiratory Rate 16 16 Blood Pressure 156/94 H 150/77 H Pulse Oximetry 94 L 96 10/30/17 04:00 10/30/17 07:37 10/30/17 08:09 Temperature 98.2 F 98.4 F Pulse Rate 66 75 Respiratory Rate 16 18 Blood Pressure 167/76 H 144/89 H Pulse Oximetry 96 96 98 Intake & Output 10/29/17 10/30/17 10/30/17 18:59 06:59 18:59 Weight 127.913 kg Other: # Voids 3 Date of Last Bowel Movement 10/28/17 10/28/17 Narrative: General: Patient no apparent distress. He speaks in clear complete sentences. He is obese at 127 kg. His is at the bedside. Cardiac: Regular rate and rhythm without murmur gallop or rub. Respiratory: Lungs clear to auscultate bilaterally. GI: Nontender. Bowel sounds normal Results 10/29/17 12:23 10/29/17 12:23 Cardiac Enzymes 10/29/17 10/29/17 10/29/17 Range/Units 12:23 15:34 22:10 AST 34 (15-37) U/L Troponin I Less than 0.02 L Less than 0.02 L Less than 0.02 L (0.02-0.05) ng/mL CBC 10/29/17 Range/Units 12:23 WBC 8.1 (4.0-11.0) th/mm3 RBC 5.18 (4.50-5.90) mil/mm3 Hgb 16.5 (13.0-17.0) gm/dL Hct 48.3 (39.0-51.0) % Plt Count 170 (150-450) th/mm3 Neut # (Auto) 5.6 (1.8-7.7) th/mm3 Lymph # (Auto) 1.7 (1.0-4.8) th/mm3 [place] # (Auto) 0.3 (0.0-0.9) th/mm3 Eos # (Auto) 0.4 (0.0-0.4) th/mm3 Baso # (Auto) 0.0 (0.0-0.2) th/mm3 Comprehensive Metabolic Panel 10/29/17 Range/Units 12:23 Sodium 141 (136-145) meq/L Potassium 3.8 (3.5-5.1) meq/L Chloride 103 (98-107) meq/L Carbon Dioxide 23.0 (21.0-32.0) meq/L BUN 15 (7-18) mg/dL Creatinine 1.26 (0.60-1.30) mg/dL Calcium 8.9 (8.5-10.1) mg/dL AST 34 (15-37) U/L ALT 67 (12-78) U/L Alkaline Phosphatase 66 (45-117) U/L Total Protein 7.8 (6.4-8.2) g/dL Albumin 4.0 (3.4-5.0) g/dL Intake and Output 10/29/17 10/30/17 10/30/17 22:59 06:59 14:59 Other: # Voids 3 Date of Last Bowel Movement 10/28/17 10/28/17 - Imaging and Cardiology Imaging: Impressions Chest X-Ray 10/29/17 12:19 CONCLUSION: Negative examination. Assessment and Plan - Assessment (1) History of coronary artery disease Code(s): Z86.79 - Personal history of other diseases of the circulatory system Status: Chronic (2) Chest pain Code(s): R07.9 - Chest pain, unspecified Status: Acute (3) Hypertension Code(s): I10 - Essential (primary) hypertension Status: Acute (4) Hyperlipidemia Code(s): E78.5 - Hyperlipidemia, unspecified Status: Acute (5) Obesity Code(s): E66.9 - Obesity, unspecified Status: Acute - Plan * Chest pain: Patient had serial cardiac enzymes and EKGs for ruling out purposes. He was evaluated by Dr. Roque Rouse of cardiology in the chest pain center whom also reviewed his heart catheterization from 2011 that was read as normal coronaries. He had a stress test is also was reviewed by Dr. Rouse and is nonischemic and will be discharged home at this time with instructions to follow-up with PCP. Return to ED for interval issues. * Hypertension: Continue medication. * Hyperlipidemia: Continue medication. * Obesity: Patient counseled on the importance of diet, exercise, weight loss. Patient is stable at this time. He is agreeable to this plan.
[2017-10-30 12:34] VITALS: PULSE 70
--- NOTE | 2017-10-30 14:51 | TR ---
Date Performed: 10/30/2017 Time Performed: 09:45:53 DOCTOR: Roque Rouse DRUG LIST: CLINICAL HISTORY: REASON FOR TEST: REASON FOR ENDING: OBSERVATION: CONCLUSION: TROY PROTOCOL. CHEST PRESSURE DID NOT WORSEN. TEST STOPPED AFTER REACHING GOAL HR S ECONDARY TO SOB AND LEG FATIGUE.Maximum SH=746 % Max HR Achieved=86.0% Resting WY=912/92 Total Exerci se Time=7:01 COMMENTS: Patient exercised using the [place] protocol. No electrocardiographic changes were seen to suggest ischemia. Hemodynamic response to exercise was normal. No significant arrhythmia was prese nt.
[2017-10-30] MEDS ORDERED: Gabapentin 300 MG Capsule PO SCH (21:00)
== END 2017-10-30 12:58 | disposition home or self-care (01) ==
LOC: NEPC 10:53 → NEDA 10:53 → NEPGCP 17:20
PROVIDERS: ADMIT Internal Medicine Interventional Cardiology; ATTEND Internal Medicine Interventional Cardiology
DX: E11.9 Type 2 diabetes mellitus without complications; E78.00 Pure hypercholesterolemia, unspecified; Z95.5 Presence of coronary angioplasty implant and graft; K21.9 Gastro-esophageal reflux disease without esophagitis; E78.5 Hyperlipidemia, unspecified; I10 Essential (primary) hypertension; F17.210 Nicotine dependence, cigarettes, uncomplicated; E66.9 Obesity, unspecified; Z86.79 Personal history of other diseases of the circulatory system; Z86.39 Personal history of other endocrine, nutritional and metabolic disease; R07.9 Chest pain, unspecified; F32.9 Major depressive disorder, single episode, unspecified; R94.31 Abnormal electrocardiogram [ECG] [EKG]; Z68.39 Body mass index [BMI] 39.0-39.9, adult

== ENCOUNTER 2017-12-05 10:20 | Observation (INO) ==
[2017-12-05 11:00] LABS: Baso % (Auto) 0.4 % (0.0-2.0); Eos # (Auto) 0.1 th/mm3 (0.0-0.4); Eos % (Auto) 1.2 % (0.0-4.0); Hematocrit 48.8 % (39.0-51.0); Hemoglobin 16.5 gm/dL (13.0-17.0); Lymph # (Auto) 2.1 th/mm3 (1.0-4.8); Lymph % (Auto) 21.9 % (9.0-44.0); Mean Corpuscular HGB Conc 33.9 % (32.0-36.0); Mean Corpuscular Hemoglobin 32.1 pg (27.0-34.0); Mean Corpuscular Volume 94.9 fL (80.0-100.0); Mean Platelet Volume 8.8 fL (7.0-11.0); Mono # (Auto) 0.6 th/mm3 (0.0-0.9); Neut # (Auto) 6.6 th/mm3 (1.8-7.7); Neut % (Auto) 70.5 % (16.0-70.0); Platelet Count 165 th/mm3 (150-450); Red Blood Count 5.14 mil/mm3 (4.50-5.90); Red Cell Distribution Width 13.4 % (11.6-17.2); White Blood Count 9.4 th/mm3 (4.0-11.0)
--- NOTE | 2017-12-05 11:12 | ED ---
HPI General Chief Complaint: Chest Pain Stated Complaint: chest pain Time Seen by Provider: 12/05/17 10:26 Source: patient Mode of arrival: ambulatory Limitations: no limitations History of Present Illness HPI narrative: negative.Is a 57-year-old man presents emergency department with chest pain that is been intermittent for the past month. Left-sided chest pressure like chest pain, shortness of breath, intermittent. Not clearly associated with exertion. Not associate with eating. History of one previous episode several years ago, had a heart cath at that time that was negative. History of diabetes hypertension hyperlipidemia. No history of UT or stent. Patient was recently seen for this about a month ago, had an exercise stress test that was followed up with his primary and got referred for further evaluation. Planning for heart catheterization. Related Data Home Medications Medication Instructions Recorded Confirmed aspirin [Aspir-81] 81 mg PO DAILY 10/29/17 12/05/17 bupropion HCl 300 mg PO QAM 10/29/17 12/05/17 citalopram 40 mg PO DAILY 10/29/17 12/05/17 cyclobenzaprine 10 mg PO TID PRN 10/29/17 12/05/17 gabapentin 300 mg PO HS 10/29/17 12/05/17 hydrocodone-acetaminophen 1 tab PO Q6H PRN 10/29/17 12/05/17 losartan 25 mg PO DAILY 10/29/17 12/05/17 montelukast 10 mg PO QPM 10/29/17 12/05/17 pravastatin 40 mg PO DAILY 10/29/17 12/05/17 canagliflozin-metformin [Invokamet] 1 tab PO BID 10/30/17 12/05/17 naproxen 500 mg PO BID 10/30/17 12/05/17 omeprazole 20 mg PO BID 10/30/17 12/05/17 metoprolol succinate 50 mg PO DAILY 12/05/17 12/05/17 tizanidine 4 mg PO TID 12/05/17 12/05/17 Allergies Allergy/AdvReac Type Severity Reaction Status Date / Time No Known Allergies Allergy Verified 12/05/17 10:28 Review of Systems ROS: all other systems reviewed are negative [facility] Medical History Medical History Chronic pain (Chronic) Depression (Chronic) Diabetes (Chronic) GERD (gastroesophageal reflux disease) (Chronic) Hypercholesteremia (Chronic) Hypertension (Chronic) Neuropathic pain (Chronic) Coronary artery disease (Suspected) Social History Social History Substance History: No History of Abuse Second Hand Smoke Exposure: Yes Smoking Status: Former smoker Tobacco Type: Cigarettes How Often Do You Have a Drink Containing Alcohol: 2 to 3 times a week Recent Travel in [facility] within the Last 8 Weeks: No Recent Out of Country Travel within the Last 8 Weeks: No Immunization History Tetanus Immunization: <5 Years Course Consultations Consultation #1: Spoke with Dr. Trujillo, Dr. Rand the cath patient today. Time: 11:11 Initial Documented Vital Signs Temperature 99.1 F 12/05/17 10:22 Pulse Rate 72 12/05/17 10:22 Respiratory Rate 22 12/05/17 10:22 Blood Pressure 151/84 H 12/05/17 10:22 Pulse Oximetry 91 L 12/05/17 10:22 Last Documented Vital Signs Temperature 99.1 F 12/05/17 10:22 Pulse Rate 52 L 12/05/17 12:34 Respiratory Rate 21 12/05/17 12:34 Blood Pressure 100/55 L 12/05/17 12:34 Pulse Oximetry 95 12/05/17 12:34 Medical Decision Making MDM Narrative Medical decision making narrative: Is a 57-year-old man with persistent chest pain, times a month, exercise stress test was negative. Following up with cardiology given persistent pain was brought in for evaluation heart catheterization. Medical Screen Exam Complete: Yes Emergency Medical Condition: Yes Lab Data Result diagrams: 12/05/17 10:51 12/05/17 10:51 Lab Results 12/05/17 12/05/17 12/05/17 Range/Units 10:51 10:51 12:03 WBC 9.4 (4.0-11.0) th/mm3 RBC 5.14 (4.50-5.90) mil/mm3 Hgb 16.5 (13.0-17.0) gm/dL Hct 48.8 (39.0-51.0) % MCV 94.9 (80.0-100.0) fL MCH 32.1 (27.0-34.0) pg MCHC 33.9 (32.0-36.0) % RDW 13.4 (11.6-17.2) % Plt Count 165 (150-450) th/mm3 MPV 8.8 (7.0-11.0) fL Neut % (Auto) 70.5 H (16.0-70.0) % Lymph % (Auto) 21.9 (9.0-44.0) % [place] % (Auto) 6.0 (0.0-8.0) % Eos % (Auto) 1.2 (0.0-4.0) % Baso % (Auto) 0.4 (0.0-2.0) % Neut # (Auto) 6.6 (1.8-7.7) th/mm3 Lymph # (Auto) 2.1 (1.0-4.8) th/mm3 [place] # (Auto) 0.6 (0.0-0.9) th/mm3 Eos # (Auto) 0.1 (0.0-0.4) th/mm3 Baso # (Auto) 0.0 (0.0-0.2) th/mm3 WBC Differential . Differential Comment Auto diff final PT 12.0 H (9.8-11.6) sec INR 1.2 Ratio APTT 26.8 (24.3-30.1) sec Sodium 139 (136-145) meq/L Potassium 4.2 (3.5-5.1) meq/L Chloride 101 (98-107) meq/L Carbon Dioxide 31.7 (21.0-32.0) meq/L Anion Gap 6 (5-15) meq/L BUN 17 (7-18) mg/dL Creatinine 1.07 (0.60-1.30) mg/dL Estimated GFR 71 L (>89) mL/min Random Glucose 92 (74-106) mg/dL Calcium 9.1 (8.5-10.1) mg/dL Total Bilirubin 0.5 (0.2-1.0) mg/dL AST 29 (15-37) U/L ALT 66 (12-78) U/L Alkaline Phosphatase 54 (45-117) U/L Troponin I Less than 0.02 L (0.02-0.05) ng/mL Total Protein 8.0 (6.4-8.2) g/dL Albumin 4.2 (3.4-5.0) g/dL ECG Data EKG Prior to Arrival: Yes Attestation: I personally reviewed and interpreted this ECG as follows: Prior ECG tracings: available for review Interpretation: My review of EKG: Normal sinus rhythm at a rate of 64, normal axis, some lateral T wave flattening, no definite evidence of acute ischemia. Discharge Plan Discharge Disposition Patient Disposition: 30 Still Patient Physicians Team ED Provider: Holger Salazar Primary Care Provider: UNKNOWN, Attending Provider: Timothy Fink Discharge Interventions Interventions: Vital Signs Last Done: 12/05/17 12:34 Status ED Status: Admitted Patient
[2017-12-05 11:19] LABS: Alanine Aminotransferase 66 U/L (12-78); Albumin 4.2 g/dL (3.4-5.0); Anion Gap 6 meq/L (5-15); Aspartate Aminotransferase 29 U/L (15-37); Blood Urea Nitrogen 17 mg/dL (7-18); Calcium 9.1 mg/dL (8.5-10.1); Carbon Dioxide 31.7 meq/L (21.0-32.0); Chloride 101 meq/L (98-107); Glomerular Filtration Rate 71 mL/min (>89); Glucose,Random 92 mg/dL (74-106); Potassium 4.2 meq/L (3.5-5.1); Sodium 139 meq/L (136-145)
[2017-12-05 11:23] LABS: Alkaline Phosphatase 54 U/L (45-117)
[2017-12-05] MEDS ORDERED: Heparin 10,000 UNITS/10 ML Vial (for IV use) IV.PUSH STA (12:01)
[2017-12-05] MEDS ORDERED: Heparin Drip 25,000 UNIT/250 ML BAG IV.CONT PRN (12:01)
[2017-12-05 12:24] LABS: Activated Partial Thrombo Time 26.8 sec (24.3-30.1); INR 1.2 Ratio
--- NOTE | 2017-12-05 13:22 | P.HPIM ---
History of Present Illness Primary Care Physician: UNKNOWN History of Present Illness: This patient is a 57-year-old male with a diagnosis of hypertension, diabetes mellitus type 2, and dyslipidemia. The patient was recently seen late October 2017 with complaints of left-sided chest pain. As per documentation the patient had a cardiac catheterization done in 2011 which showed normal coronaries. Recent workup in late October of this year for left-sided chest pain was negative including a exercise treadmill test. The patient was subsequently discharged and was to follow-up outpatient after discharge. The patient states he left-sided chest pain shortly after being discharged which has been on and off over the past couple of left-sided chest pain is pressure- like without any radiation. He came into the emergency department today as it has been difficult for him to carry on with his daily activities. He denies any shortness of breath, no diarrhea, no fevers or chills. Past medical history significant for hypertension, diabetes mellitus type 2, dyslipidemia Surgical history patient has had an umbilical hernia repair, knee surgery, shoulder surgery many years ago. Family history significant for gastric cancer in his brother and his aunt Social history the patient has a history of tobacco and alcohol use. He states that he has been smoking socially approximately 1-2 cigarettes/day for 20 years. He is also exposed to secondhand smoke daily as his is a smoker. Inpatient Certification: I certify that the inpatient services were ordered in accordance with Medicare regulations governing the order. This includes certification that hospital inpatient services are reasonable and necessary and in the case of services not specified as inpatient-only under 42 CFR 419.22(n), that they are appropriately provided as inpatient services in accordance to with the 2-midnight benchmark under 43 CFR 412.3(e) Estimated Total Length of Stay (Days): 2 Plans for Post Hospital Care: Home Review of Systems All other systems reviewed negative except as stated in HPI PMFSH - History History Provided By: Patient - Medical History Medical History: Medical History (Last Reviewed 12/05/17 @ 11:14 by Holger Salazar MD) Chronic pain Depression Diabetes GERD (gastroesophageal reflux disease) Hypercholesteremia Hypertension Neuropathic pain Coronary artery disease - Tobacco History Second Hand Smoke Exposure: Yes Tobacco Use In Past 30 Days: No Smoking Status: Former smoker Tobacco Type: Cigarettes - Alcohol History How Often Do You Have a Drink Containing Alcohol: 2 to 3 times a week - Substance Use History Substance History: No History of Abuse - Travel History Recent Travel in the [place] Within the Last 8 Weeks: No Recent Travel Out of the Country Within the Last 8 Weeks: No - Immunization History Tetanus Immunization: <5 Years Medications and Allergies Active Medications: Active Medications Aspirin (Aspirin) 325 mg PO ONCE ONE Stop: 12/05/17 12:57 Heparin Sodium/Dextrose (Heparin/D5w 25,000 U/250 Ml) 25,000 unit in 250 mls @ 0 mls/hr IV.CONT TITRATE PRN; Protocol PRN Reason: Per Protocol Last Admin: 12/05/17 12:32 Dose: 1,000 units/hr, 10 mls/hr Morphine Sulfate (Morphine Inj) 2 mg IV.PUSH Q4H PRN PRN Reason: CHEST PAIN Nitroglycerin (Nitrostat Sl) 0.4 mg SL Q5M PRN PRN Reason: CHEST PAIN Allergies Allergy/AdvReac Type Severity Reaction Status Date / Time No Known Allergies Allergy Verified 12/05/17 10:28 Home Medications Medication Instructions Recorded Confirmed Type aspirin [Aspir-81] 81 mg PO DAILY 10/29/17 12/05/17 History bupropion HCl 300 mg PO QAM 10/29/17 12/05/17 History citalopram 40 mg PO DAILY 10/29/17 12/05/17 History cyclobenzaprine 10 mg PO TID PRN 10/29/17 12/05/17 History gabapentin 300 mg PO HS 10/29/17 12/05/17 History hydrocodone-acetaminophen 1 tab PO Q6H PRN 10/29/17 12/05/17 History losartan 25 mg PO DAILY 10/29/17 12/05/17 History montelukast 10 mg PO QPM 10/29/17 12/05/17 History pravastatin 40 mg PO DAILY 10/29/17 12/05/17 History canagliflozin-metformin [Invokamet] 1 tab PO BID 10/30/17 12/05/17 History naproxen 500 mg PO BID 10/30/17 12/05/17 History omeprazole 20 mg PO BID 10/30/17 12/05/17 History metoprolol succinate 50 mg PO DAILY 12/05/17 12/05/17 History tizanidine 4 mg PO TID 12/05/17 12/05/17 History Exam Vital signs: Vital Signs 12/05/17 10:22 10/30/18 10:33 12/05/17 12:34 Temperature 99.1 F Pulse Rate 72 55 L 52 L Respiratory Rate 22 24 21 Blood Pressure 151/84 H 134/76 100/55 L Pulse Oximetry 91 L 95 95 Intake & Output 12/04/17 12/05/17 12/05/17 18:59 06:59 18:59 Weight 127.913 kg Narrative: General patient complains of left-sided pressure-like chest pain currently 3 out of 10 HEENT extraocular movements are intact, clear oropharyngeal mucosa, no JVD Cardiovascular S1-S2 audible, RRR, no murmurs rubs or gallops Respiratory clear to auscultation bilaterally Abdomen soft, wheeze, nontender, normal bowel sounds Extremities no edema 2+ distal pulses in bilateral upper and lower extremities Neuro no neurological deficits. Results - Labs CBC & Chem 7: 12/05/17 10:51 12/05/17 10:51 Labs: Short CBC 12/05/17 Range/Units 10:51 WBC 9.4 (4.0-11.0) th/mm3 Hgb 16.5 (13.0-17.0) gm/dL Hct 48.8 (39.0-51.0) % Plt Count 165 (150-450) th/mm3 BMP 12/05/17 10:51 Sodium 139 Potassium 4.2 Chloride 101 Carbon Dioxide 31.7 BUN 17 Creatinine 1.07 Calcium 9.1 Cardiac Enzymes 12/05/17 Range/Units 10:51 Troponin I Less than 0.02 L (0.02-0.05) ng/mL Liver Function 12/05/17 Range/Units 10:51 Total Bilirubin 0.5 (0.2-1.0) mg/dL AST 29 (15-37) U/L ALT 66 (12-78) U/L Alkaline Phosphatase 54 (45-117) U/L Albumin 4.2 (3.4-5.0) g/dL Caprini VTE Risk Assessment Caprini VTE Risk Assessment: No/Low Risk (score <= 1) Caprini Risk Assessment Model: Point Value = 1 Point Value = 2 Point Value = 3 Point Value = 5 Age 41-60 Minor surgery BMI > 25 kg/m2 Swollen legs Varicose veins or History of unexplained or recurrent spontaneous Oral contraceptives or hormone replacement Sepsis (< 1 month) Serious lung disease, including pneumonia (< 1 month) Abnormal pulmonary function Acute myocardial infarction Congestive heart failure (< 1 month) History of inflammatory bowel disease Medical patient at bed rest Age 61-74 Arthroscopic surgery Major open surgery (> 45 min) Laparoscopic surgery (> 45 min) Malignancy Confined to bed (> 72 hours) Immobilizing plaster cast Central venous access Age >= 75 History of VTE Family history of VTE Factor V Leiden Prothrombin [id number] Lupus anticoagulant Anticardiolipin antibodies Elevated serum homocysteine Heparin-induced thrombocytopenia Other congenital or acquired thrombophilia Stroke (< 1 month) Elective arthroplasty Hip, pelvis, or leg fracture Acute spinal cord injury (< 1 month) Prophylaxis Regimen: Total Risk Factor Score Risk Level Prophylaxis Regimen 0-1 Low Early ambulation 2 Moderate Order ONE of the following: *Sequential Compression Device (SCD) *Heparin 5000 units SQ BID 3-4 Higher Order ONE of the following medications: *Heparin 5000 units SQ TID *Enoxaparin/Lovenox 40 mg SQ daily (WT < 150 kg, CrCl > 30 mL/min) *Enoxaparin/Lovenox 30 mg SQ daily (WT < 150 kg, CrCl > 10-29 mL/min) *Enoxaparin/Lovenox 30 mg SQ BID (WT < 150 kg, CrCl > 30 mL/min) AND/OR *Sequential Compression Device (SCD) 5 or more Highest Order ONE of the following medications: *Heparin 5000 units SQ TID (Preferred with Epidurals) *Enoxaparin/Lovenox 40 mg SQ daily (WT < 150 kg, CrCl > 30 mL/min) *Enoxaparin/Lovenox 30 mg SQ daily (WT < 150 kg, CrCl > 10-29 mL/min) *Enoxaparin/Lovenox 30 mg SQ BID (WT < 150 kg, CrCl > 30 mL/min) AND *Sequential Compression Device (SCD) Assessment and Plan - Plan This patient is a 57-year-old male with a diagnosis of hypertension, diabetes mellitus type 2, and dyslipidemia. The patient was recently seen late October 2017 with complaints of left-sided chest pain. As per documentation the patient had a cardiac catheterization done in 2011 which showed normal coronaries. Recent workup in late October of this year for left-sided chest pain was negative including a exercise treadmill test. The patient was subsequently discharged and was to follow-up outpatient after discharge. The patient states he left-sided chest pain shortly after being discharged which has been on and off over the past couple of left-sided chest pain is pressure- like without any radiation. 1. Chest pain possibly unstable angina 2. Hypertension/dyslipidemia Patient presented with symptoms mentioned above. EKG was done which shows normal sinus rhythm no acute ST segment or T wave changes. Initial set of cardiac enzymes and troponins are negative. Will follow up with 2 more sets. Cardiology has evaluated the patient and is recommending a cardiac catheterization which will be done today. The patient is on aspirin, statin, and a beta-reilly. Currently has bradycardic metoprolol will be continued with holding parameters given his bradycardia. He has been placed on a heparin drip by the emergency department physician. I will follow up with recommendations from cardiology after the cardiac catheterization. N.p.o. for cardiac catheterization. 3. Diabetes mellitus type 2 4. Tobacco/alcohol use Patient will be kept on a low-dose insulin sliding scale. His diabetes medication regimen will be adjusted as needed. The patient was advised to avoid tobacco and alcohol use. DVT prophylaxis, patient is currently on heparin drip.
[2017-12-05] MEDS ORDERED: Dextrose 50% in Water 50 ML Vial IV.PUSH PRN (13:24)
[2017-12-05] MEDS ORDERED: Aspirin 325 MG Tablet PO ONE (14:00)
[2017-12-05] MEDS ORDERED: Heparin/NS PF Inj 1,000 ML ONE (14:29)
[2017-12-05] MEDS ORDERED: Heparin 10,000 UNITS/10 ML Vial (for IV use) ONE (14:30)
[2017-12-05] MEDS ORDERED: fentaNYL Citrate Inj 100 MCG/2 ML Ampul ONE (14:30)
--- NOTE | 2017-12-05 15:16 | ECG ---
Date Performed: 12/05/2017 Time Performed: 10:29:34 PTAGE: 57 years EKG: Sinus rhythm POSSIBLE LEFT ATRIAL ENLARGEMENT NONSPECIFIC T-WAVE ABNORMALITY Since the previous tracing, no signi ficant change noted BORDERLINE ECG PREVIOUS TRACING : 10/30/2017 06.06 DOCTOR: Víctor Knowles Interpretating Date/Time 12/05/2017 15:00:20
--- NOTE | 2017-12-05 15:46 | CATHPROC ---
[employer] HIS Report Study Information Study Number Admission Scheduled Start Study Start [id number] Dec 05 2017 12:48PM 12/05/2017 Dec 05 2017 2:29PM [place] [facility] Cardiac Catheterization Admit Source Facility Department Emergency department [facility] Physician and Clinical Staff Initial Mesfin Ty Street Light Mechanic David Ortez RN Street Light Mechanic Jil Carter RN Other Ferlitto, Joey, RN Recorder Jen Flores,BIODIESEL PRODUCTION TECHNICIAN TECH2 Scrub Shereen Andrea,RT(R) Procedures Performed Procedure Location (Site) Vessel Name Coronary Angiograms LCA Left Coronary Coronary Angiograms RCA Right Coronary L Heart Cath Equipment Time Country Singer Description Size Mfg Part Number Used/Scraped TRANSDUCER, TRUWAVE [id number] 14:30 MONTES PAIGE * Used W/STOCKCOCK *[id number] *[id number] [id number] *[id number] 14:30 Zhou Heiya BLANKET,WARM AIR CCL * Used *[id number] 14:30 Zhou Heiya PACK, CCL CUSTOM * Used *[id number] 14:30 Zhou Heiya SUPPORT, ARTERIAL ADULT [id number] *[id number] Used BAND, RADIAL COMPRESSION TR [id number] 15:27 [employer] 29CM Used LARGE 29 *[id number] 14:30 [employer] WIRE, EXCHANGE 260CM 3MMJ 260CM Used *[id number] 14:30 NAMIC MANIFOLD, 4 PORT * Used *[id number] 14:30 [employer]COM[employer] OMNIPAQUE, 350 MG, 150ML 150ML [id number] Used SHEATH, FR6 TRANSRADIAL [id number] 14:30 [employer] FR 6 Used SLENDER 10CM *[id number] History: Allergies Allergy Reaction No Known Allergies History: Risk Factors Family History of Hypertension Dyslipidemia Previous [place] Previous Heart Failure Premature CAD Yes Yes Yes No No Prior Valve Prior PCI Prior CABG Surgery No No No Cerebrovascular Peripheral Artery Chronic Lung On Dialysis Diabetes Disease Disease Disease No No No No Yes History: Stress Tests Stress or Imaging Studies Performed Yes Standard Exercise Stress Stress Test Result Test Yes Negative Stress Echo No Stress Test SPECT No Stress Test CMR No Cardiac CTA Coronary Calcium Score No No History: Other Current Smoker Method Packs a Day Years Used Pack Years No Cigarettes 1 2 2 Labs Hgb (g/dl) Hct (%) WBC (l/cumm) Platelets (thousands) 11.60-17.00 35.00-51.00 4.00-11.00 150.00-450.00 16.5 48.8 9.4 165 Glucose (mg/dl) BUN (mg/dl) Creatinine (mg/dl) BUN:Creatinine (1:x) 74.00-106.00 7.00-18.00 0.50-1.30 10.00-20.00 92 17 1.0 17 Na (meq/l) K (meq/l) 136.00-145.00 3.50-5.10 139 4.2 INR (PTT:PT) 0.90-1.10 1.2 Troponin I (ng/ml) CPK-MB (ng/ML) 0.02-0.05 0.50-3.60 0.02 Not Drawn Medication Medication Total Dose (Bolus/Oral) Medication Total Dosage/Unit 1% XYLOCAINE 20 mL FENTANYL 50 mcg RADIAL COCKTAIL 5 mL (Bolus) VERSED 1 mg Medications (Bolus/Oral) Medication Time Given Dosage/Unit Administered By Reason 1% XYLOCAINE 12/05/2017 3:05:01 PM 20 mL David Ortez 20 mL 1% XYLOCAINE given in lab by David Ortez RN via Subcutaneous. Ordered by Mesfin Rand VERSED 12/05/2017 3:05:20 PM 1 mg David Ortez 1 mg VERSED given in lab by David Ortez RN in Left Antecubital via Peripheral IV. Ordered by Mesfin Crawford FENTANYL 12/05/2017 3:06:21 PM 50 mcg David Ortez 50 mcg FENTANYL given in lab by David Ortez RN in Left Antecubital via Peripheral IV. Ordered by Mesfin Yepez RADIAL COCKTAIL 12/05/2017 3:07:29 PM 5 mL (Bolus) Mesfin Rand 5 mL (Bolus) RADIAL COCKTAIL given in lab by Mesfin Rand in Right Radial via Radial. Using [S olution Name]. Ordered by Mesfin Rand Reason: Ntg 200mcg Verapamil 2.5mg Heparin 5000U. Medication (Drip) Medication Time Given Dosage/Unit Concentration/Unit Diluent (ml) Solution IV Solutions 12/05/2017 2:30:22 PM 0 mL (IV) 500 NaCl .9 Patient arrived on IV Solutions in Left Antecubital via Peripheral IV. Pump/Drip Flow = 20 ml/hr usin g NaCl .9. Initial Case Assessment Cardiovascular HR Rhythm NIBP Chest Pain 51 sb 122/78 8 Circulatory - Right Pulses Dorsalis Pedis Radial 3 2 Scale (0,1,2,3,4,d) Circulatory - Left Pulses Dorsalis Pedis Radial 3 Scale (0,1,2,3,4,d) Neurological State Oriented to time-place- Alert Moves all extremities person Respiration - General Respiration Rate SpO2 (%) (B/min) 10 94 Final Case Assessment Cardiovascular HR Rhythm NIBP Chest Pain 57 sb 109/71 8 Circulatory - Right Pulses Dorsalis Pedis Femoral Radial 3 2 2 Scale (0,1,2,3,4,d) Circulatory - Left Pulses Dorsalis Pedis Femoral Radial 3 2 Scale (0,1,2,3,4,d) Neurological State Oriented to time-place- Alert Moves all extremities person Respiration - General Respiration Rate SpO2 (%) (B/min) 19 91 Chronological Log Time Study Chronological Log 14:20:44 Patient arrived via Bed. 14:20:51 Patient Name, D.O.B, / Armband Verified By R.N. 14:21:03 Verbal Stimulation=2 Physical Stimulation=2 Airway=2 Respiration=2 TOTAL=8. (0=absent, 1=li mited, 2=present) 14:21:58 Pre-op and post- op instructions given; patient acknowledges understanding of instructions. Vitals capture started with the following parameters, Patient=Adult, Interval=5 min, Initial Pr wscbjl=362 mmHg, 14:28:39 Deflation Rate=5 mmHg, Cuff placed on Left Arm 14:30:12 Presedation assessment performed by Car Dryer RN. 14:30:16 Allens test performed on the right radial and ulnar artery. 14:30:18 Patient has been NPO for More than 6Hrs. 14:30:19 Skin Breakdown-right arm sores and right wrist scratches noted 14:30:20 Nayely Prominences Protected 14:30:21 A # 20 IV was noted in the Antecubital (left). Grade = 0 14:30:22 Patient arrived on IV Solutions in Left Antecubital via Peripheral IV. Pump/Drip Flow = 20 ml/hr using NaCl .9. 14:30:24 History and physical on the chart or being dictated. Assessment: Initial Case, HR=51 BPM, Rhythm=sb, ATBD=821/78 mmhg, Chest Pain=8 Right Pulses: Ganesh Ped=3, Radial=2 14:30:27 Left Pulses: Ganesh Ped=3 Neurological: State=Alert, Ox3, YOUSSEF Respiration: Resp=10 B/min, SpO2=94 % 14:32:22 HR=50 bpm, BPBV=375/71 mmhg, SpO2=94.0 %, Resp=13 B/min 14:37:21 HR=50 bpm, XSJL=035/73 mmhg, Resp=11 B/min 14:42:15 Reference ECG taken 14:42:20 HR=49 bpm, KZZM=381/75 mmhg, Resp=16 B/min 14:47:18 Right groinand right wrist prepped with 2% chlorhexidine, and draped after a 3 min. waiting time. 14:47:21 HR=50 bpm, AOJR=979/78 mmhg, SpO2=96 %, Resp=21 B/min 14:52:06 Pressure channel 1 zeroed. 14:52:40 MD paged 14:52:55 HR=50 bpm, SUPJ=064/74 mmhg, SpO2=94.0 %, Resp=20 B/min 14:57:19 HR=50 bpm, YIDG=563/77 mmhg, SpO2=96 %, Resp=17 B/min 15:01:37 MD arrived. 15:02:20 HR=49 bpm, UOKG=510/78 mmhg, SpO2=95 %, Resp=18 B/min Time Out. Correct patient, correct procedure, correct physician, labs, allergies, and equipment verified with dairy lab technician 15:04:59 team present. Fire risk assesment completed (see hard stop sheet for coding). Time Out Conc urred by MD and individual staff in procedure. 15:05:00 Case Start 15:05:01 20 mL 1% XYLOCAINE given in lab by David Ortez RN via Subcutaneous. Ordered by Mesfin Rand 15:05:20 1 mg VERSED given in lab by David Ortez RN in Left Antecubital via Peripheral IV. Ordere d by Mesfin Rand 50 mcg FENTANYL given in lab by Burfield, David, RN in Left Antecubital via Peripheral IV. Ordere d by Mesfin Rand 15:06:21 G. 15:07:02 Access site was Right Radial Artery . A SHEATH, FR6 TRANSRADIAL SLENDER 10CM FR 6 was advanced into the Radial (right) using the Perc utaneous 15:07:11 technique. 15:07:24 HR=55 bpm, HFRH=588/71 mmhg, SpO2=94.0 %, Resp=13 B/min 5 mL (Bolus) RADIAL COCKTAIL given in lab by Mesfin Rand in Right Radial via Radial. Us ing [Solution Name]. 15:07:29 Ordered by Mesfin Rand. Reason: Ntg 200mcg Verapamil 2.5mg Heparin 5000U. A JR 4.0 INFINITI CATHETER FR 5 was advanced over a wire. OMNIPAQUE, 350 MG, 150ML 150ML was us ed for 15:08:12 injections. Recorded Pressure: LV, HR=60, Condition=Condition 1 15:09:42 (Left Ventricle) LV 90/1/7 Recorded Pressure: LV, HR=57, Condition=Condition 1 15:10:01 (Left Ventricle) LV 91/3/10 Recorded Pressure: LV, Ao, HR=61, Condition=Condition 1 15:10:27 (Left Ventricle) LV 84/1/10, (Aorta) Ao 85/60/72 15:11:46 The RCA was injected and visualized at various angles. OMNIPAQUE, 350 MG, 150ML 150ML used . 15:12:25 HR=59 bpm, WNSY=990/57 mmhg, SpO2=88.0 %, Resp=21 B/min After removing the current catheter a JL 3.5 INFINITI CATHETER FR 5 was advanced over a WIRE, E XCHANGE 260CM 15:13:42 3MMJ 260CM. 15:15:52 The LCA was injected and visualized at various angles. OMNIPAQUE, 350 MG, 150ML 150ML used . 15:17:22 HR=58 bpm, PTDA=482/69 mmhg, SpO2=90 %, Resp=19 B/min 15:21:09 Catheter was removed 15:21:43 Case End (Physician broke scrub) 15:22:23 HR=57 bpm, CIHL=071/71 mmhg, SpO2=91.0 %, Resp=18 B/min Assessment: Final Case, HR=57 BPM, Rhythm=sb, EUQR=692/71 mmhg, Chest Pain=8 Right Pulses: Ganesh Ped=3, Femoral=2, Radial=2 15:22:25 Left Pulses: Ganesh Ped=3, Femoral=2 Neurological: State=Alert, Ox3, YOUSSEF Respiration: Resp=19 B/min, SpO2=91 % Radial Compression Device Used. 12 mLs of air placed in BAND, RADIAL COMPRESSION TR LARGE 29 29 CM. Affected 15:26:15 hand 95 % O2 saturation. 15:27:22 SJKN=769/71 mmhg 15:27:38 No case complications noted. 15:27:39 Cine recording checked. 15:27:41 Bedside Report will be given. 15:27:51 A Left Heart Cath was performed. 15:32:25 FPNP=540/73 mmhg 15:34:29 Patient moved to stretcher 15:36:38 Patient transported to DOCU End Study - Contrast Media Used In Study Contrast Total Opened (mL) Total Used (mL) Total Wasted (mL) Omnipaque 60 60 0 End Study - Maximum Contrast Load Max Contrast Load (mL) 639.5 End Study - Radiation Exposure Fluoro Time Fluoro Dose (mGy) Cine Dose (uGym2) (minutes) 3.9 6767 [id number] End Study - Sheaths Sheaths Pulled By Sheath Hold Time (min) Shereen Andrea End Study - Patient Disposition Complications Transferred To Interventional Outcome No Telemetry Bed No attempt made
--- NOTE | 2017-12-05 17:08 | XR ---
EXAM DATE: 12/05/2017 5:03 PM EDT AGE/SEX: 57 years / Male INDICATIONS: Chest pain post procedure. CLINICAL DATA: This is the patient's subsequent encounter. Patient reports that signs and symptoms h ave been present for 1 day and indicates a pain score of 7/10. MEDICAL/SURGICAL HISTORY: . Hypertension. Diabetes. . Cardiac stent. COMPARISON: [facility], CHEST 1V SINGLE AP, 10/29/2017. . FINDINGS: A single AP view of the chest demonstrates the lungs to be symmetrically aerated without evidence of mass, infiltrate or effusion. The cardiomediastinal contours are unremarkable. Osseous structures a re intact. CONCLUSION: Negative examination. Electronically signed by: Holger Pisano MD 12/05/2017 5:06 PM EDT
[2017-12-05] MEDS: Insulin NovoLOG Aspart Correctional Sugar Inj SQ SCH ×2 (19:18→20:31)
[2017-12-05] MEDS: Gabapentin 300 MG Capsule PO SCH (20:30)
[2017-12-05] MEDS: Morphine Sulfate Inj 2 MG/ML Vial IV.PUSH PRN (20:53)
[2017-12-05 22:00] LABS: Creatine Kinase 67 U/L (39-308)
[2017-12-05] MEDS: Pantoprazole Sodium 20 MG DR Tablet PO SCH (22:22)
[2017-12-05] MEDS: buPROPion 150 MG 12 HR Tablet PO SCH (22:22)
--- NOTE | 2017-12-06 00:22 | MB ---
cc: Mesfin Rand DO DATE: 12/05/2017 REASON FOR CONSULTATION: Chest pain. HISTORY OF PRESENT ILLNESS: Hilario Rivera is a pleasant 57-year-old male who sees my partner Dr. Johnston in the office and presented due to chest pain. Around a month ago, he presented to [place] with chest pain and underwent an exercise treadmill stress test which showed no ischemia. He continued to have chest pain and was started on antianginal medications. He continues to use significant amount of nitroglycerin sublingual. Because of this, he was instructed that he should come to the emergency room to be evaluated. In seeing him, he continues to have chest pain which is pressure-like in the center of his chest. It is difficult for him to carry out his daily activities due to the chest pain. He denies shortness of breath, nausea, or vomiting. PAST MEDICAL HISTORY: 1. Hypertension. 2. Diabetes mellitus. 3. Dyslipidemia. PAST SURGICAL HISTORY: 1. Cardiac catheterization (2011) showing normal coronary arteries. 2. Umbilical hernia repair. 3. Knee surgery. 4. Shoulder surgery. ALLERGIES: NO KNOWN DRUG ALLERGIES. MEDICATIONS: 1. Montelukast 10 mg every night. 2. Gabapentin 300 mg every night. 3. Citalopram 40 mg daily. 4. Bupropion 300 mg every morning. 5. Losartan 25 mg daily. 6. Hydrocodone/acetaminophen 10/325 every 6 hours as needed. 7. Aspirin 81 mg daily. 8. Pravastatin 40 mg daily. 9. Invokamet 150/500 b.i.d. 10. Omeprazole 20 mg b.i.d. 11. Naproxen 500 mg b.i.d. 12. Toprol-XL 50 mg daily. 13. Tizanidine 4 mg t.i.d. 14. Imdur 60 mg daily. FAMILY HISTORY: He denies sudden cardiac within the family. SOCIAL HISTORY: The patient has a history of alcohol and tobacco use. He smokes 1-2 cigarettes a day for 20 years. REVIEW OF SYSTEMS: Fourteen systems were reviewed including osteopathic. Pertinent positives and negatives above, otherwise negative. PHYSICAL EXAMINATION: VITAL SIGNS: Temperature 99.1, heart rate 72, blood pressure 151/84, respirations 22, pulse oximetry 91% on room air. GENERAL: The patient appears well, in no acute distress. Alert, awake and oriented x3. HEENT: Extraocular muscles intact. Mucous membranes moist. NECK: Supple. No JVD at 45 degrees. No carotid bruits heard bilaterally. Carotid upstroke is brisk in nature. HEART: Regular rate and rhythm. Positive first and second heart sounds with no noted murmurs, gallops, or rubs. LUNGS: Clear to auscultation bilaterally. No wheezes, rales, or rhonchi. ABDOMEN: Soft, nontender, nondistended. No organomegaly noted. EXTREMITIES: No clubbing, cyanosis, or edema. Femoral and distal pulses are intact bilaterally. NEUROLOGIC: No focal deficits. SKIN: Warm, dry, and intact. OSTEOPATHIC: No kyphoscoliosis, lordosis, or paraspinal tender points. LABORATORY DATA: Hemoglobin 16.5, hematocrit 48.8, platelets 165. Potassium 4.2, BUN 17, creatinine 1.07. Troponin less than 0.02. Electrocardiogram (12/05/2017 at 1029): Sinus rhythm, possible left atrial enlargement, nonspecific ST-T wave changes. IMPRESSION: 1. Chest pain, concerning for coronary insufficiency, on multiple antianginals. 2. Hypertension. 3. Dyslipidemia. 4. Diabetes mellitus. 5. Tobacco abuse. RECOMMENDATIONS: 1. Mr. Rivera presented with chest pain concerning for coronary insufficiency, on multiple antianginals. He has been using a significant number of nitroglycerins. 2. Because of this, we recommended cardiac catheterization. Risks, benefits, and alternatives were explained to him, and he consented as such. 3. He has been started on Toprol-XL as an outpatient, is significantly bradycardic, and so we will most likely have to decrease this to 25 mg daily. 4. He has been started on a heparin drip, and this will be held on arrival to the cardiac catheterization lab. 5. Further recommendations will be made after coronary visualization. Thank you for allowing me to see Hilario Rivera. If there are any questions, please do not hesitate to call. DO SULMA Keys/juanis , 11:57 PM , 12:09 AM
--- NOTE | 2017-12-06 01:46 | MA ---
cc: Mesfin Rand DO DATE: 12/05/2017 PROCEDURE: Left heart catheterization, coronary angiogram, monitored sedation 15 minutes. PREPROCEDURE DIAGNOSIS: Unstable angina, on multiple antianginals. 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 MEDICATIONS: Versed 1 mg, fentanyl 50 mcg, verapamil 2.5 mg, nitroglycerin 200 mcg, heparin 5000 units. CONTRAST USED: 60 mL FLUOROSCOPY: 3.9 minutes. MONITORED SEDATION: 15 minutes. FRAILTY SCORE:. 3 ESTIMATED BLOOD LOSS: 10 mL PROCEDURAL SUMMARY: Hilario Rivera is a pleasant 57-year-old male who sees my partner Dr. Johnston in the office, and due to continued chest pain on antianginals as well as using multiple nitroglycerins, he was recommended to be evaluated in the emergency room. Because of his chest pain concerning for coronary insufficiency in an unstable manner, he was recommended cardiac catheterization. Risks, benefits, and alternatives were explained to him, and he consented to such. He was brought to the lab and prepped in the usual sterile fashion. The right radial artery was accessed using modified Seldinger technique and placement of a 5/6 [place] Slender sheath. This was easily aspirated and flushed. JR4 was advanced over a J-wire to the ascending aorta and across the aortic valve for measurement of left ventricular pressure. This was pulled back across the aortic valve showing no significant gradient of aortic stenosis. JR4 was used for selective angiography of the right coronary artery system. This was exchanged out for a JL3.5 which was used for selective angiography of the left coronary artery system. JL3.5 was removed over J-wire. A radial band was placed over the arteriotomy site for hemostasis. The patient left the optical laboratory mechanic cardiovascularly stable. FINDINGS: Left main: Large vessel with an irregular 30% stenosis in the mid portion. It trifurcates into an LAD, circumflex, and ramus. LAD: Moderate-size vessel with 20%-30% disease in the mid portion. Distal to this, he does have mild myocardial bridging. It gives off 1 major diagonal. The major diagonal has an area of moderate myocardial bridging in the mid portion. Ramus: Small to moderate sized vessel with no significant disease. Left circumflex: Moderate to large-size vessel which is dominant in nature. It gives off 2 obtuse marginals as well as a posterior descending artery with no significant disease. RCA: Small, nondominant vessel. LVEDP 10. IMPRESSION: 1. Chest pain concerning for coronary insufficiency. 2. Mild coronary artery disease by cardiac catheterization. 3. Overall slow filling of the coronary vessels, possibly due to small vessel disease. 4. 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 RECOMMENDATIONS: 1. Mr. Rivera appears to have mild coronary artery disease with no lesions for intervention. 2. He does overall have slow filling of his vessels which may be due to small vessel disease as well as mild to moderate myocardial bridging of the LAD and diagonal respectively. 3. As his heart rate is in the upper 40s, we will decrease his metoprolol succinate to 25 mg daily, but we should attempt to keep his heart rate as close to 60 as possible to allow filling during diastole. 5. We will have him stop his Imdur and add amlodipine as this will overall help with small vessel disease as well as myocardial bridging. 6. He will be watched overnight and if stable in the morning discharged home for followup with Dr. Johnston as previously scheduled. Thank you for allowing me to see Hilario Rivera. If there are any questions, please do not hesitate to call. DO TANIA KeysP/rm , 12:56 AM , 01:06 AM
[2017-12-06] MEDS: Morphine Sulfate Inj 2 MG/ML Vial IV.PUSH PRN (03:48)
[2017-12-06] MEDS: Insulin NovoLOG Aspart Correctional Sugar Inj SQ SCH ×4 (08:42→21:12)
[2017-12-06] MEDS: Pantoprazole Sodium 20 MG DR Tablet PO SCH ×2 (08:46→20:55)
[2017-12-06] MEDS: Gabapentin 300 MG Capsule PO SCH ×2 (08:46→20:55)
[2017-12-06] MEDS: buPROPion 150 MG 12 HR Tablet PO SCH ×2 (08:54→20:55)
[2017-12-06] MEDS ORDERED: amLODIPine 5 MG Tablet PO SCH (09:00)
[2017-12-06 10:25] LABS: Baso % (Auto) 0.6 % (0.0-2.0); Eos # (Auto) 0.2 th/mm3 (0.0-0.4); Eos % (Auto) 2.6 % (0.0-4.0); Hematocrit 47.3 % (39.0-51.0); Hemoglobin 16.3 gm/dL (13.0-17.0); Lymph % (Auto) 25.2 % (9.0-44.0); Mean Corpuscular HGB Conc 34.4 % (32.0-36.0); Mean Corpuscular Hemoglobin 32.6 pg (27.0-34.0); Mean Corpuscular Volume 94.6 fL (80.0-100.0); Mean Platelet Volume 8.8 fL (7.0-11.0); Mono # (Auto) 0.5 th/mm3 (0.0-0.9); Mono % (Auto) 6.5 % (0.0-8.0); Neut # (Auto) 5.2 th/mm3 (1.8-7.7); Neut % (Auto) 65.1 % (16.0-70.0); Platelet Count 137 th/mm3 (150-450); Red Cell Distribution Width 13.8 % (11.6-17.2); White Blood Count 7.9 th/mm3 (4.0-11.0)
[2017-12-06 10:48] LABS: Carbon Dioxide 29.5 meq/L (21.0-32.0)
[2017-12-06] MEDS ORDERED: Iohexol 350 MG/ML 100 ML Vial (for Cath Lab) IVCONTRAST ONE (11:00)
--- NOTE | 2017-12-06 12:00 | P.PN ---
Subjective Interval history: Patient doing well, tolerating PO, voiding/stooling well. Patient denies CP, SOB , and BALTAZAR. No overnight events per RN. Physical Exam Vital signs: Vital Signs 12/05/17 12:34 12/05/17 15:40 12/05/17 20:25 Temperature Pulse Rate 52 L 61 Respiratory Rate 21 Blood Pressure 100/55 L Pulse Oximetry 95 96 12/06/17 00:00 12/06/17 00:10 12/06/17 04:00 Temperature 97.7 F 97.5 F L Pulse Rate 58 L 59 L 52 L Respiratory Rate 18 17 Blood Pressure 121/75 131/77 Pulse Oximetry 95 93 L 12/06/17 06:35 12/06/17 08:00 12/06/17 08:45 Temperature 97.7 F Pulse Rate 60 60 Respiratory Rate 18 18 Blood Pressure 146/77 H Pulse Oximetry 94 L Intake & Output 12/05/17 12/06/17 12/06/17 18:59 06:59 18:59 Output Total 600 / 600 Balance -600 / -600 Weight 127.913 kg 125.1 kg Output: Urine 600 / 600 Other: Date of Last Bowel Movement 12/06/17 Weight On Admission 127 kg Narrative: GENERAL: well nourished male, in NAD, lying comfortably in bed SKIN: Warm and dry. HEENT: Normocephalic. Atraumatic. No scleral icterus. No injection or drainage. PERRLA, MOM. NECK: Supple, trachea midline. No JVD or lymphadenopathy. CARDIOVASCULAR: Regular rate and rhythm without murmurs, gallops, or rubs. RESPIRATORY: CTA x2, no accessory muscle use. GASTROINTESTINAL: Abdomen soft, non-tender, nondistended. MUSCULOSKELETAL: No cyanosis, or edema. BACK: Nontender without obvious deformity. No CVA tenderness. NEURO: AAOx3, no focal deficits, motor system 5/5 x4, speech clear. Results - Labs CBC & Chem 7: 12/06/17 08:43 12/06/17 08:43 Laboratory Results - last 24 hr 12/05/17 12/05/17 12/05/17 12:03 19:13 19:40 WBC RBC Hgb Hct MCV MCH MCHC RDW Plt Count MPV Neut % (Auto) Lymph % (Auto) [place] % (Auto) Eos % (Auto) Baso % (Auto) Neut # (Auto) Lymph # (Auto) [place] # (Auto) Eos # (Auto) Baso # (Auto) WBC Differential Differential Comment PT 12.0 H INR 1.2 APTT 26.8 Sodium Potassium Chloride Carbon Dioxide Anion Gap BUN Creatinine Estimated GFR POC Glucose 129 H 104 Random Glucose Calcium Total Creatine Kinase Troponin I 12/05/17 12/05/17 12/06/17 21:11 21:11 08:43 WBC 7.9 RBC 5.00 Hgb 16.3 Hct 47.3 MCV 94.6 MCH 32.6 MCHC 34.4 RDW 13.8 Plt Count 137 L MPV 8.8 Neut % (Auto) 65.1 Lymph % (Auto) 25.2 [place] % (Auto) 6.5 Eos % (Auto) 2.6 Baso % (Auto) 0.6 Neut # (Auto) 5.2 Lymph # (Auto) 2.0 [place] # (Auto) 0.5 Eos # (Auto) 0.2 Baso # (Auto) 0.0 WBC Differential . Differential Comment Auto diff final PT INR APTT 25.4 Sodium Potassium Chloride Carbon Dioxide Anion Gap BUN Creatinine Estimated GFR POC Glucose Random Glucose Calcium Total Creatine Kinase 67 Troponin I Less than 0.02 L 12/06/17 08:43 WBC RBC Hgb Hct MCV MCH MCHC RDW Plt Count MPV Neut % (Auto) Lymph % (Auto) [place] % (Auto) Eos % (Auto) Baso % (Auto) Neut # (Auto) Lymph # (Auto) [place] # (Auto) Eos # (Auto) Baso # (Auto) WBC Differential Differential Comment PT INR APTT Sodium 139 Potassium 4.0 Chloride 101 Carbon Dioxide 29.5 Anion Gap 9 BUN 18 Creatinine 0.98 Estimated GFR 78 L POC Glucose Random Glucose 78 Calcium 9.0 Total Creatine Kinase Troponin I - Imaging Impressions Chest X-Ray 12/05/17 00:00 CONCLUSION: Negative examination. Assessment and Plan - Assessment (1) Chest pain Code(s): R07.9 - Chest pain, unspecified Status: Resolved (2) Hypertension Code(s): I10 - Essential (primary) hypertension Status: Chronic (3) Hyperlipidemia Code(s): E78.5 - Hyperlipidemia, unspecified Status: Chronic - Plan This is a 57-year-old male with past medical history of diabetes mellitus, hypertension, hyperlipidemia admitted for inpatient management of chest pain, status post cardiac cath, HD #2 1. Chest pain/Unstable Angina Hx of HTN/Hx of HLD Cardiac cath today shows CAD with no lesions for intervention Stress test WNL 10/2017 EKG WNL, Trop Neg x3 Cont. Metoprolol (dose decreased to 25 mg twice daily per cardiology today), Imdur stopped by cardiology today, and Amlodipine added per cardiology today Cont. ASA, Lipitor, NG PRN, and Morphine/[place] PRN Will obtain lipid panel s/p Heparin Drip Per cardiology stable for discharge in the morning if stable on new medical regimen Per Cards on 12/06: 1. Mr. Rivera appears to have mild coronary artery disease with no lesions for intervention. 2. He does overall have slow filling of his vessels which may be due to small vessel disease as well as mild to moderate myocardial bridging of the LAD and diagonal respectively. 3. As his heart rate is in the upper 40s, we will decrease his metoprolol succinate to 25 mg daily, but we should attempt to keep his heart rate as close to 60 as possible to allow filling during diastole. 5. We will have him stop his Imdur and add amlodipine as this will overall help with small vessel disease as well as myocardial bridging. 6. He will be watched overnight and if stable in the morning discharged home for followup with Dr. Johnston as previously scheduled. 3. Diabetes Mellitus Type 2 with neuropathy Blood sugar stable Hemoglobin A1c pending On Invokamet at home, holding while hospitalized Continue sliding scale insulin with Accu-Cheks AC/HS Cont. Adam for neuropathy 4. Hx of Anxiety/Depression Continue home Wellbutrin and Citalopram Denies suicidal homicidal ideations 5. Tobacco Abuse Encouraged cessation, risks discussed 6. GERD Cont. PPI 7. Allergic Rhinitis Cont. Singulair 8. DVT PPX: SCD's 9. Dispo: Per cardiology stable for discharge in the morning if stable on new medical regimen. Discussed Condition With: patient, rheumatology nurse Planning: Per cardiology stable for discharge in the morning if stable on new medical regimen.
[2017-12-06] MEDS ORDERED: Montelukast 10 MG Tablet PO SCH (18:00)
[2017-12-06 18:06] VITALS: RESP 18; TEMP 97.6
[2017-12-06 21:28] VITALS: BP 145/94; PULSE 51; O2SAT 96
--- NOTE | 2017-12-06 22:09 | P.PNCA ---
Subjective Interval history: No complaints Evaluated this morning and again this afternoon Medications and Allergies Allergies Allergy/AdvReac Type Severity Reaction Status Date / Time No Known Allergies Allergy Verified 12/05/17 10:28 Home Medications Medication Instructions Recorded Confirmed Type aspirin [Aspir-81] 81 mg PO DAILY 10/29/17 12/05/17 History bupropion HCl 300 mg PO QAM 10/29/17 12/05/17 History citalopram 40 mg PO DAILY 10/29/17 12/05/17 History gabapentin 300 mg PO HS 10/29/17 12/05/17 History hydrocodone-acetaminophen 1 tab PO Q6H PRN 10/29/17 12/05/17 History montelukast 10 mg PO QPM 10/29/17 12/05/17 History pravastatin 40 mg PO DAILY 10/29/17 12/05/17 History canagliflozin-metformin [Invokamet] 1 tab PO BID 10/30/17 12/05/17 History naproxen 500 mg PO BID 10/30/17 12/05/17 History omeprazole 20 mg PO BID 10/30/17 12/05/17 History tizanidine 4 mg PO TID 12/05/17 12/05/17 History Physical Exam Vital signs: Vital Signs 12/06/17 00:00 12/06/17 00:10 12/06/17 04:00 Temperature 97.7 F 97.5 F L Pulse Rate 58 L 59 L 52 L Respiratory Rate 18 17 Blood Pressure 121/75 131/77 Pulse Oximetry 95 93 L 12/06/17 06:35 12/06/17 08:00 12/06/17 08:45 Temperature 97.7 F Pulse Rate 60 60 Respiratory Rate 18 18 Blood Pressure 146/77 H Pulse Oximetry 94 L 12/06/17 12:00 12/06/17 15:47 12/06/17 16:00 Temperature 97.3 F L 97.6 F Pulse Rate 61 54 L Respiratory Rate 18 16 18 Blood Pressure 135/99 H 143/81 H Pulse Oximetry 93 L 95 12/06/17 20:00 Temperature 97.6 F Pulse Rate 51 L Respiratory Rate 18 Blood Pressure 145/94 H Pulse Oximetry 96 Intake & Output 12/06/17 12/06/17 12/07/17 06:59 18:59 06:59 Intake Total 420 / 420 Output Total 600 / 600 1300 / 1300 Balance -600 / -600 -880 / -880 Weight 125.1 kg Intake: Oral 420 / 420 Output: Urine 600 / 600 1300 / 1300 Other: Date of Last Bowel Movement 12/06/17 # Bowel Movements 0 Weight On Admission 127 kg Narrative: GENERAL: well nourished male, in NAD, lying comfortably in bed SKIN: Warm and dry. HEENT: Normocephalic. Atraumatic. No scleral icterus. No injection or drainage. PERRLA, MOM. NECK: Supple, trachea midline. No JVD or lymphadenopathy. CARDIOVASCULAR: Regular rate and rhythm without murmurs, gallops, or rubs. RESPIRATORY: CTA x2, no accessory muscle use. GASTROINTESTINAL: Abdomen soft, non-tender, nondistended. MUSCULOSKELETAL: No cyanosis, or edema. BACK: Nontender without obvious deformity. No CVA tenderness. NEURO: AAOx3, no focal deficits, motor system 5/5 x4, speech clear. Results 12/06/17 08:43 12/06/17 08:43 Cardiac Enzymes 12/05/17 12/05/17 Range/Units 10:51 21:11 AST 29 (15-37) U/L Troponin I Less than 0.02 L Less than 0.02 L (0.02-0.05) ng/mL Coagulation 12/05/17 12/05/17 Range/Units 12:03 21:11 PT 12.0 H (9.8-11.6) sec APTT 26.8 25.4 (24.3-30.1) sec CBC 12/05/17 12/06/17 Range/Units 10:51 08:43 WBC 9.4 7.9 (4.0-11.0) th/mm3 RBC 5.14 5.00 (4.50-5.90) mil/mm3 Hgb 16.5 16.3 (13.0-17.0) gm/dL Hct 48.8 47.3 (39.0-51.0) % Plt Count 165 137 L (150-450) th/mm3 Neut # (Auto) 6.6 5.2 (1.8-7.7) th/mm3 Lymph # (Auto) 2.1 2.0 (1.0-4.8) th/mm3 [place] # (Auto) 0.6 0.5 (0.0-0.9) th/mm3 Eos # (Auto) 0.1 0.2 (0.0-0.4) th/mm3 Baso # (Auto) 0.0 0.0 (0.0-0.2) th/mm3 Comprehensive Metabolic Panel 12/05/17 12/06/17 Range/Units 10:51 08:43 Sodium 139 139 (136-145) meq/L Potassium 4.2 4.0 (3.5-5.1) meq/L Chloride 101 101 (98-107) meq/L Carbon Dioxide 31.7 29.5 (21.0-32.0) meq/L BUN 17 18 (7-18) mg/dL Creatinine 1.07 0.98 (0.60-1.30) mg/dL Calcium 9.1 9.0 (8.5-10.1) mg/dL AST 29 (15-37) U/L ALT 66 (12-78) U/L Alkaline Phosphatase 54 (45-117) U/L Total Protein 8.0 (6.4-8.2) g/dL Albumin 4.2 (3.4-5.0) g/dL Intake and Output 12/06/17 12/06/17 12/06/17 06:59 14:59 22:59 Intake Total 420 / 420 Output Total 600 / 600 1300 / 1300 Balance -600 / -600 -880 / -880 Intake: Oral 420 / 420 Output: Urine 600 / 600 1300 / 1300 Other: # Bowel Movements 0 Weight 125.1 kg - Imaging and Cardiology Imaging: Impressions Chest X-Ray 12/05/17 00:00 CONCLUSION: Negative examination. Assessment and Plan - Assessment (1) Chest pain of uncertain etiology Code(s): R07.89 - Other chest pain Status: Acute (2) History of type 2 diabetes mellitus Code(s): Z86.39 - Personal history of other endocrine, nutritional and metabolic disease Status: Chronic (3) History of anxiety Code(s): Z86.59 - Personal history of other mental and behavioral disorders Status: Chronic (4) History of hypertension Code(s): Z86.79 - Personal history of other diseases of the circulatory system Status: Chronic (5) History of coronary artery disease Code(s): Z86.79 - Personal history of other diseases of the circulatory system Status: Chronic (6) Obesity Code(s): E66.9 - Obesity, unspecified Status: Acute - Plan 1) Chest pain Underwent LHC with no significant lesion Had slow flow down the vessels, most likely small vessel disease Also had mild myocardial bridging of his LAD, and moderate bridging of his diagonal vessel 2) Will stop Imdur 3) Bradycardia Decrease Toprol XL to 25mg Would prefer to keep his heart rate around 55-65 bpm due to bridging 4) Plan on Norvasc Will help with myocardial bridging as well as small vessel disease 5) Cardiovascularly stable for discharge Discussed with patient and primary team
== END 2017-12-06 21:22 | disposition home or self-care (01) ==
LOC: NEPE 10:20 → INTOOBSV 12:48 → NEDA 12:48 → OBSVTOIN 12:48 → NEDA 14:12 → N04 19:36
PROVIDERS: ADMIT Family Medicine; ATTEND Family Medicine